=== PATIENT | female | born 1970 | race Caucasian/White ===

== ENCOUNTER 2020-05-04 08:00 | Emergency (ER) | payer MEDICAID ==
[~2020-05-04] VITALS: Ht 154.9 cm; Wt 71.8 kg
[2020-05-04 09:31] LABS: BASOPHILS % (AUTO) 0.4 % (0-1); EOSINOPHILS # (AUTO) 0.1 X10'3 (0-0.9); EOSINOPHILS % (AUTO) 1.3 % (0-6); HEMATOCRIT 43.4 % (35.0-45.0); HEMOGLOBIN 14.7 g/dl (12.0-16.0); LYMPHOCYTES # (AUTO) 1.5 X10'3 (1.1-4.8); LYMPHOCYTES % (AUTO) 29.3 % (21-51); MEAN CORPUSCULAR HEMOGLOBIN 31.7 PG (27.0-31.0); MEAN CORPUSCULAR HGB CONC 33.9 g/dL (33.0-36.5); MEAN CORPUSCULAR VOLUME 93.5 FL (78-98); MEAN PLATELET VOLUME 8.7 FL (7.4-10.4); MONOCYTES # (AUTO) 0.7 X10'3 (0-0.9); MONOCYTES % (AUTO) 13.1 % (2-12); NEUTROPHILS # (AUTO) 2.9 X10'3 (1.8-7.7); NEUTROPHILS % (AUTO) 55.9 % (42-75); PLATELET COUNT 338 X10'3 (140-440); RED BLOOD COUNT 4.64 X10'6 (4.20-5.60); RED CELL DISTRIBUTION WIDTH 13.6 % (11.5-14.5); WHITE BLOOD COUNT 5.2 X10'3 (4.5-11.0)
[2020-05-04 09:33] LABS: ALANINE AMINOTRANSFERASE 33 U/L (12-78); ALBUMIN/GLOBULIN RATIO 1.3 (1.1-1.5); ALKALINE PHOSPHATASE 74 IU/L (46-116); ANION GAP 7 (8-16); ASPARTATE AMINO TRANSFERASE 27 U/L (10-37); BILIRUBIN,TOTAL 0.5 MG/DL (0.1-1.0); BLOOD UREA NITROGEN 11 MG/DL (7-18); BUN/CREATININE RATIO 9.4 (6.6-38.0); CALCIUM 8.9 MG/DL (8.5-10.1); CHLORIDE 104 MMOL/L (99-107); CREATININE 1.17 MG/DL (0.40-0.90); GLUCOSE 112 MG/DL (70-104); SODIUM 139 MMOL/L (135-145); TOTAL CARBON DIOXIDE 28.3 MMOL/L (24-32); TOTAL PROTEIN 7.2 G/DL (6.4-8.2); eGFR 49 ML/MIN
[2020-05-04 09:46] LABS: POTASSIUM 3.6 MMOL/L (3.5-5.1)
[2020-05-04 10:31] LABS: D-DIMER 0.39 MG/L FEU (0-0.50)
[2020-05-04 12:06] LABS: CLARITY,URINE SLIGHTLY CLOUDY (Clear); COLOR,URINE STRAW (Yellow); GLUCOSE, URINE NEGATIVE (Neg); KETONES,URINE NEGATIVE (Neg); LEUKOCYTE ESTERASE ,URINE NEGATIVE (Neg); NITRITES, URINE NEGATIVE (Neg); OCCULT BLOOD,URINE NEGATIVE (Neg); PH,URINE >=9.0 (4.8-8.0); PROTEIN,URINE NEGATIVE (Neg); UROBILINOGEN,URINE 0.2 E.U/dL (0.2-1.0)
[2020-05-04 12:08] LABS: UA COLLECTION TYPE STRAIGHT CATH
[2020-05-04 12:12] LABS: MUCUS STRANDS MANY /LPF (Neg); SQUAMOUS EPITHELIAL CELL,UR MANY /LPF (FEW)
[2020-05-04 12:13] LABS: BACTERIA,URINE FEW /HPF (Neg); RBC,URINE 0-2 /HPF (0-2); WBC,URINE 0-4 /HPF (0-4)
[2020-05-04 12:14] LABS: AMORPHOUS PHOSPHATES 2+
[2020-05-04 13:05] VITALS: BP 113/72
== END 2020-05-04 13:07 | disposition home or self-care (01) ==
LOC: ER 08:00
DX: R06.02 Shortness of breath (principal); Z88.0 Allergy status to penicillin; Z88.5 Allergy status to narcotic agent
CPT/HCPCS: 36415; 71045; 80053; 81001; 83880; 84484; 85025; 85379; 93005; 99285

== ENCOUNTER 2020-06-26 13:45 | Observation (INO) | payer MEDICAID ==
[~2020-06-26] VITALS: Ht 154.9 cm; Wt 62.0 kg
[2020-06-26 14:30] LABS: BASOPHILS % (AUTO) 0.2 % (0-1); EOSINOPHILS % (AUTO) 0.3 % (0-6); HEMOGLOBIN 13.3 g/dl (12.0-16.0); LYMPHOCYTES # (AUTO) 2.1 X10'3 (1.1-4.8); LYMPHOCYTES % (AUTO) 20.7 % (21-51); MEAN CORPUSCULAR HEMOGLOBIN 31.7 PG (27.0-31.0); MEAN CORPUSCULAR HGB CONC 33.3 g/dL (33.0-36.5); MEAN CORPUSCULAR VOLUME 95.1 FL (78-98); MEAN PLATELET VOLUME 7.7 FL (7.4-10.4); MONOCYTES % (AUTO) 10.2 % (2-12); NEUTROPHILS # (AUTO) 6.9 X10'3 (1.8-7.7); NEUTROPHILS % (AUTO) 68.6 % (42-75); PLATELET COUNT 300 X10'3 (140-440); RED CELL DISTRIBUTION WIDTH 13.4 % (11.5-14.5)
[2020-06-26] MEDS ORDERED: normal saline 1000ML IV soln IVB ONE (14:40)
[2020-06-26] MEDS ORDERED: morphine 4 MG/ML inj SYRINge IV ONE ×2 (14:40→16:10)
[2020-06-26 14:51] LABS: ALANINE AMINOTRANSFERASE 99 U/L (12-78); ALBUMIN 3.7 G/DL (3.4-5.0); ALBUMIN/GLOBULIN RATIO 1.2 (1.1-1.5); ALKALINE PHOSPHATASE 88 IU/L (46-116); ANION GAP 7 (8-16); ASPARTATE AMINO TRANSFERASE 167 U/L (10-37); BILIRUBIN,TOTAL 0.4 MG/DL (0.1-1.0); BLOOD UREA NITROGEN 18 MG/DL (7-18); BUN/CREATININE RATIO 13.7 (6.6-38.0); CALCIUM 8.7 MG/DL (8.5-10.1); CHLORIDE 109 MMOL/L (99-107); CREATININE 1.31 MG/DL (0.40-0.90); GLUCOSE 86 MG/DL (70-104); POTASSIUM 3.9 MMOL/L (3.5-5.1); SODIUM 139 MMOL/L (135-145); TOTAL CARBON DIOXIDE 22.9 MMOL/L (24-32); TOTAL PROTEIN 6.7 G/DL (6.4-8.2); eGFR 43 ML/MIN
[2020-06-26 15:03] LABS: D-DIMER 0.47 MG/L FEU (0-0.50); PARTIAL THROMBOPLASTIN TIME 23 SECONDS (22-32)
[2020-06-26] MEDS ORDERED: iohexol 350MG/ML 100ml bottle IV ONE (15:05)
--- NOTE | 2020-06-26 15:14 | NUR ---
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
--- NOTE | 2020-06-26 15:15 | NUR ---
Rj ([facility]) [phone]
--- NOTE | 2020-06-26 15:28 | NUR ---
pt returns from ct
[2020-06-26] MEDS ORDERED: regadenoson 0.4mg/5ml syringe IV PRN (17:00)
[2020-06-26] MEDS ORDERED: nitroGLYCERIN 0.4mg SUBLingual tab SL PRN (17:00)
[2020-06-26] MEDS ORDERED: aminophylline 250mg/10ml inj. IV PRN (17:00)
[2020-06-26] MEDS ORDERED: metoprolol tartrate 1mg/ml inj IV PRN (17:00)
[2020-06-26] MEDS ORDERED: potassium Cl 20 mEq SR tablet PO PRN ×2 (17:05)
[2020-06-26] MEDS ORDERED: mag hydrox/Alum hydrox/simeth 30ml oral suspension PO PRN (17:05)
[2020-06-26] MEDS ORDERED: magnesium Cl slow-release 64mg tablet PO PRN (17:05)
[2020-06-26] MEDS ORDERED: magnesium 4gm in 100ml NS 100 ML IV PRN (17:05)
[2020-06-26] MEDS ORDERED: acetaminophen 325mg tablet PO PRN (17:05)
[2020-06-26] MEDS ORDERED: ondansetron/PF 4mg/2ml inj IV PRN (17:05)
[2020-06-26] MEDS ORDERED: potassium CL 10mEq/100ml bag 100 ML IV PRN ×2 (17:05)
[2020-06-26] MEDS ORDERED: morphine 2 MG/ML inj. syringe IV PRN (17:05)
[2020-06-26] MEDS ORDERED: ondansetron/PF 4mg/2ml inj IV ONE (17:05)
[2020-06-26] MEDS ORDERED: normal saline 1000ml 1,000 ML IV SCH (17:05)
[2020-06-26] MEDS ORDERED: magnesium 2GM in 50ml NS 50 ML IV PRN (17:05)
[2020-06-26] MEDS ORDERED: PIRO20CA2 PO (17:12)
[2020-06-26] MEDS ORDERED: PANT40TA54 PO (17:12)
[2020-06-26] MEDS ORDERED: BUDE10.2 INH (17:12)
[2020-06-26] MEDS ORDERED: ALBU8.5H8 IH (17:12)
[2020-06-26] MEDS ORDERED: GABA600T13 PO (17:12)
[2020-06-26] MEDS ORDERED: CYCL-1 PO (17:12)
[2020-06-26] MEDS ORDERED: LEVO100T9 PO (17:12)
[2020-06-26] MEDS ORDERED: DOXY-224 PO (17:12)
[2020-06-26] MEDS ORDERED: metoclopramide 5 mg/ml inj IV PRN (19:25)
--- NOTE | 2020-06-26 19:33 | NUR ---
pt nausea returned just over an hour after administration of Zofran. MD order for Reglan PRN Q6h.
[2020-06-26] MEDS ORDERED: ALBUTEROL INHALER 1 PUFF/90 MCG INHALER IH PRN (19:50)
[2020-06-26] MEDS ORDERED: albuterol 2.5 MG/3 ML nebule NEB PRN (19:55)
[2020-06-26] MEDS: K and/or MAG REPLACEMENT MC SCH (20:00)
[2020-06-26] MEDS: albuterol 2.5 MG/3 ML nebule NEB SCH (20:00)
[2020-06-26] MEDS: budesonide 0.5mg/2ml UD nebule IH SCH (20:00)
[2020-06-26] MEDS ORDERED: temazepam 15mg capsule PO PRN (21:00)
[2020-06-26] MEDS ORDERED: cyclobenzaprine 10mg tablet PO SCH (21:00)
--- NOTE | 2020-06-26 21:51 | NUR ---
Patient in room ED 6. I have received report from TRISTAN SALMERON and had the opportunity to ask questions and assume patient care.
[2020-06-26 22:32] VITALS: BP 106/65
[2020-06-27] VITALS (12 sets, daily range): BP systolic 90–117; BP diastolic 49–78
[2020-06-27] MEDS: gabapentin 300mg capsule PO SCH ×3 (01:10→14:34)
[2020-06-27] MEDS: albuterol 2.5 MG/3 ML nebule NEB SCH ×2 (02:24→08:17)
[2020-06-27 02:33] LABS: BASOPHILS % (AUTO) 0.7 % (0-1); EOSINOPHILS # (AUTO) 0.1 X10'3 (0-0.9); EOSINOPHILS % (AUTO) 1.3 % (0-6); HEMOGLOBIN 12.3 g/dl (12.0-16.0); LYMPHOCYTES # (AUTO) 1.5 X10'3 (1.1-4.8); LYMPHOCYTES % (AUTO) 27.6 % (21-51); MEAN CORPUSCULAR HEMOGLOBIN 32.9 PG (27.0-31.0); MEAN CORPUSCULAR HGB CONC 34.2 g/dL (33.0-36.5); MEAN CORPUSCULAR VOLUME 96.1 FL (78-98); MEAN PLATELET VOLUME 7.7 FL (7.4-10.4); MONOCYTES # (AUTO) 0.6 X10'3 (0-0.9); MONOCYTES % (AUTO) 10.7 % (2-12); NEUTROPHILS # (AUTO) 3.2 X10'3 (1.8-7.7); NEUTROPHILS % (AUTO) 59.7 % (42-75); PLATELET COUNT 248 X10'3 (140-440); RED BLOOD COUNT 3.75 X10'6 (4.20-5.60); RED CELL DISTRIBUTION WIDTH 13.2 % (11.5-14.5); WHITE BLOOD COUNT 5.3 X10'3 (4.5-11.0)
[2020-06-27] MEDS ORDERED: nitroGLYCERIN 0.1mg/hour patch TD ONE (02:45)
[2020-06-27 02:47] LABS: ALBUMIN 2.9 G/DL (3.4-5.0); ANION GAP 7 (8-16); BLOOD UREA NITROGEN 17 MG/DL (7-18); BUN/CREATININE RATIO 16.3 (6.6-38.0); CALCIUM 7.7 MG/DL (8.5-10.1); CHLORIDE 111 MMOL/L (99-107); CHOL/HDL RATIO 2.5 (0.00-4.99); CHOLESTEROL 146 MG/DL (0-200); CREATININE 1.04 MG/DL (0.40-0.90); GLUCOSE 100 MG/DL (70-104); HDL CHOLESTEROL 58 MG/DL (35-60); LDL CHOLESTEROL 63 MG/DL (50-100); MAGNESIUM 2.4 MG/DL (1.5-2.4); POTASSIUM 3.6 MMOL/L (3.5-5.1); SODIUM 141 MMOL/L (135-145); TOTAL CARBON DIOXIDE 23.3 MMOL/L (24-32); TRIGLYCERIDES 105 MG/DL (20-135); eGFR 57 ML/MIN
--- NOTE | 2020-06-27 06:10 | NUR ---
Patient in room MED 310. I have received report from FAVIOLA Gomez and had the opportunity to ask questions and assume patient care.
[2020-06-27] MEDS: K and/or MAG REPLACEMENT MC SCH (07:29)
[2020-06-27] MEDS ORDERED: pantoprazole 40mg Tablet.DR PO SCH (07:30)
[2020-06-27] MEDS ORDERED: nitroGLYCERIN 0.1mg/hour patch TD SCH (08:00)
[2020-06-27] MEDS ORDERED: levoTHYROXINE 100mcg tablet PO SCH (08:00)
[2020-06-27] MEDS: budesonide 0.5mg/2ml UD nebule IH SCH (08:17)
[2020-06-27] MEDS ORDERED: PANT40SU2 PO (10:30)
--- NOTE | 2020-06-27 12:06 | NUR ---
dr. thornton paged: PAGER ID: [phone] MESSAGE: [phone]: SHANNON SINGER (-), WAITING ON ECHO, if you still want. going to feed her :D nurse Martha [phone]
--- NOTE | 2020-06-27 14:38 | NUR ---
Discharged. PIV out. Stable per Dr Otto for [place]. Educated on meds, follow-up and chest pain. Escript to Velia in [place]. Wheeled out to lobby.
== END 2020-06-27 14:40 | disposition home or self-care (01) ==
LOC: ER 13:45 → ED HOLD 17:05 → MED 3N 22:00
PROVIDERS: ADMIT Internal Medicine; ATTEND Internal Medicine
DX: R07.89 Other chest pain (principal); R79.89 Other specified abnormal findings of blood chemistry; I10 Essential (primary) hypertension; I48.91 Unspecified atrial fibrillation; E03.9 Hypothyroidism, unspecified; G89.29 Other chronic pain; I24.9 Acute ischemic heart disease, unspecified; Z82.49 Family history of ischemic heart disease and other diseases of the circulatory system; Z79.899 Other long term (current) drug therapy; Z88.0 Allergy status to penicillin; Z88.5 Allergy status to narcotic agent
CPT/HCPCS: 36415; 71045; 71275; 74174; 76700; 78452; 80048; 80053; 80061; 83605; 83735; 83880; 84484; 85025; 85379; 85610; 85730; 87081; 93005; 93017; 93306; 94640; 94760; 96361; 96374; 96375; 96376; 99285; A9500; G0378; J2270; J2405; J2765; J2785; J7030; Q9967; J7626

== ENCOUNTER 2020-12-03 09:23 | Emergency (ER) | payer MEDICAID ==
[~2020-12-03] VITALS: Ht 154.9 cm; Wt 63.6 kg
[~2020-12-03 09:23] MED LIST: ALBU8.5H8 IH; BUDE10.2 INH; CYCL-1 PO; DOXY-224 PO; GABA600T13 PO; LEVO100T9 PO; PANT40SU2 PO; PANT40TA54 PO
[2020-12-03 10:32] LABS: BASOPHILS % (AUTO) 0.8 % (0-1); EOSINOPHILS # (AUTO) 0.1 X10'3 (0-0.9); EOSINOPHILS % (AUTO) 1.2 % (0-6); HEMATOCRIT 44.5 % (35.0-45.0); HEMOGLOBIN 14.9 g/dl (12.0-16.0); LYMPHOCYTES # (AUTO) 1.6 X10'3 (1.1-4.8); LYMPHOCYTES % (AUTO) 27.3 % (21-51); MEAN CORPUSCULAR HEMOGLOBIN 31.7 PG (27.0-31.0); MEAN CORPUSCULAR HGB CONC 33.4 g/dL (33.0-36.5); MEAN CORPUSCULAR VOLUME 94.8 FL (78-98); MONOCYTES # (AUTO) 0.7 X10'3 (0-0.9); MONOCYTES % (AUTO) 11.1 % (2-12); NEUTROPHILS # (AUTO) 3.5 X10'3 (1.8-7.7); NEUTROPHILS % (AUTO) 59.6 % (42-75); PLATELET COUNT 336 X10'3 (140-440); RED CELL DISTRIBUTION WIDTH 12.8 % (11.5-14.5); WHITE BLOOD COUNT 5.9 X10'3 (4.5-11.0)
[2020-12-03 10:36] LABS: URINE HCG NEGATIVE (NEG)
[2020-12-03 10:41] LABS: CLARITY,URINE CLEAR (Clear); COLOR,URINE YELLOW (Yellow); GLUCOSE, URINE NEGATIVE (Neg); KETONES,URINE NEGATIVE (Neg); LEUKOCYTE ESTERASE ,URINE NEGATIVE (Neg); NITRITES, URINE NEGATIVE (Neg); OCCULT BLOOD,URINE NEGATIVE (Neg); PROTEIN,URINE NEGATIVE (Neg); UROBILINOGEN,URINE 0.2 E.U/dL (0.2-1.0)
[2020-12-03 10:42] LABS: ALANINE AMINOTRANSFERASE 27 U/L (12-78); ALBUMIN 4.3 G/DL (3.4-5.0); ALBUMIN/GLOBULIN RATIO 1.2 (1.1-1.5); ALKALINE PHOSPHATASE 82 IU/L (46-116); ANION GAP 10 (8-16); ASPARTATE AMINO TRANSFERASE 25 U/L (10-37); BILIRUBIN,TOTAL 0.5 MG/DL (0.1-1.0); BLOOD UREA NITROGEN 16 MG/DL (7-18); BUN/CREATININE RATIO 15.4 (6.6-38.0); CALCIUM 8.8 MG/DL (8.5-10.1); CHLORIDE 103 MMOL/L (99-107); CREATININE 1.04 MG/DL (0.40-0.90); GLUCOSE 92 MG/DL (70-104); LIPASE 64 U/L (73-393); POTASSIUM 4.3 MMOL/L (3.5-5.1); SODIUM 138 MMOL/L (135-145); TOTAL CARBON DIOXIDE 25.1 MMOL/L (24-32); TOTAL PROTEIN 7.8 G/DL (6.4-8.2); eGFR 56 ML/MIN
[2020-12-03 10:43] LABS: UA COLLECTION TYPE CLN CATCH MIDSTREAM
[2020-12-03] MEDS ORDERED: ondansetron/PF 4mg/2ml inj IV ONE (11:55)
[2020-12-03] MEDS ORDERED: morphine 4 MG/ML inj SYRINge IV ONE (11:55)
[2020-12-03] MEDS ORDERED: iohexol 300mg/ml 100ml inj. ONE (12:11)
[2020-12-03] MEDS ORDERED: HYDROcodone/acetaminophen 10/325mg tab PO ONE (14:20)
[2020-12-03] MEDS ORDERED: ondansetron 4mg rapidly disintigrating tab PO ONE (14:20)
[2020-12-03 17:07] VITALS: BP 114/88
== END 2020-12-03 17:08 | disposition home or self-care (01) ==
LOC: ER 09:23
DX: R10.32 Left lower quadrant pain (principal); R30.9 Painful micturition, unspecified; I48.91 Unspecified atrial fibrillation; I25.2 Old myocardial infarction; Z90.49 Acquired absence of other specified parts of digestive tract; Z88.0 Allergy status to penicillin; Z88.5 Allergy status to narcotic agent; Z79.2 Long term (current) use of antibiotics; Z79.899 Other long term (current) drug therapy
CPT/HCPCS: 36415; 74177; 76856; 80053; 81003; 81025; 83605; 83690; 85025; 93976; 96374; 96375; 99285; J2270; J2405; Q9967

== ENCOUNTER 2021-05-07 13:36 | Inpatient (IN) | payer MEDICAID ==
[~2021-05-07] VITALS: Ht 154.9 cm; Wt 79.0 kg
[~2021-05-07 13:36] MED LIST changes: +ALBU8.5H17 IH; -ALBU8.5H8 IH
[2021-05-07] MEDS ORDERED: albuterol 2.5 MG/3 ML nebule CONTNEB PRN ×2 (13:55→16:05)
[2021-05-07] MEDS ORDERED: normal saline 1000ML IV soln IVB ONE ×2 (13:55→16:05)
[2021-05-07] MEDS ORDERED: methylPREDNISolone sod succ 125mg/2ml vial IV ONE (13:55)
[2021-05-07 14:13] LABS: BASOPHILS # (AUTO) 0.1 X10'3 (0-0.2); BASOPHILS % (AUTO) 0.5 % (0-1); EOSINOPHILS % (AUTO) 0 % (0-6); HEMATOCRIT 41.9 % (35.0-45.0); HEMOGLOBIN 14.3 g/dl (12.0-16.0); LYMPHOCYTES # (AUTO) 1.8 X10'3 (1.1-4.8); LYMPHOCYTES % (AUTO) 16.1 % (21-51); MEAN CORPUSCULAR HEMOGLOBIN 32.1 PG (27.0-31.0); MEAN CORPUSCULAR VOLUME 94.5 FL (78-98); MEAN PLATELET VOLUME 7.8 FL (7.4-10.4); MONOCYTES # (AUTO) 0.9 X10'3 (0-0.9); MONOCYTES % (AUTO) 8.1 % (2-12); NEUTROPHILS # (AUTO) 8.3 X10'3 (1.8-7.7); NEUTROPHILS % (AUTO) 75.3 % (42-75); PLATELET COUNT 385 X10'3 (140-440); RED BLOOD COUNT 4.44 X10'6 (4.20-5.60); RED CELL DISTRIBUTION WIDTH 13.2 % (11.5-14.5)
[2021-05-07 14:28] LABS: ALANINE AMINOTRANSFERASE 31 U/L (12-78); ALBUMIN 4.2 G/DL (3.4-5.0); ALBUMIN/GLOBULIN RATIO 1.2 (1.1-1.5); ALKALINE PHOSPHATASE 88 IU/L (46-116); ANION GAP 17 (8-16); ASPARTATE AMINO TRANSFERASE 16 U/L (10-37); BILIRUBIN,TOTAL 0.3 MG/DL (0.1-1.0); BLOOD UREA NITROGEN 17 MG/DL (7-18); BUN/CREATININE RATIO 12.8 (6.6-38.0); CALCIUM 8.8 MG/DL (8.5-10.1); CHLORIDE 105 MMOL/L (99-107); CREATININE 1.33 MG/DL (0.40-0.90); GLUCOSE 165 MG/DL (70-104); POTASSIUM 3.9 MMOL/L (3.5-5.1); SODIUM 141 MMOL/L (135-145); TOTAL CARBON DIOXIDE 19.2 MMOL/L (24-32); TOTAL PROTEIN 7.8 G/DL (6.4-8.2); eGFR 42 ML/MIN
--- NOTE | 2021-05-07 14:40 | NUR ---
BREAK RN: PATIENT ON BED AWAKE RECEIVING BREATHING TX.
[2021-05-07] MEDS ORDERED: racepinephrine 11.25mg/0.5ml nebule IH ONE (16:05)
[2021-05-07] MEDS ORDERED: ipratropium 0.5 MG/2.5ML nebule IH ONE (16:05)
[2021-05-07] MEDS ORDERED: dexamethasone sod phosphate 10mg/ml inj IV STA (16:29)
[2021-05-07] MEDS ORDERED: VERA120T19 PO (16:36)
[2021-05-07] MEDS ORDERED: MONT10TA32 PO (16:36)
[2021-05-07] MEDS ORDERED: BUPR100T7 PO (16:37)
[2021-05-07] MEDS ORDERED: ATRIN IH (16:38)
[2021-05-07] MEDS ORDERED: GABA300C PO (16:40)
[2021-05-07] MEDS ORDERED: LEVO125T PO (16:42)
[2021-05-07] MEDS ORDERED: ALBU2.5V10 NEB (16:43)
[2021-05-07 17:08] LABS: D-DIMER 0.33 MG/L FEU (0-0.50)
[2021-05-07] MEDS ORDERED: iohexol 350MG/ML 100ml bottle IV ONE (17:17)
[2021-05-07] MEDS ORDERED: mag hydrox/Alum hydrox/simeth 30ml oral suspension PO PRN (19:25)
[2021-05-07] MEDS ORDERED: potassium Cl 20 mEq SR tablet PO PRN (19:25)
[2021-05-07] MEDS ORDERED: ondansetron/PF 4mg/2ml inj IV PRN (19:25)
[2021-05-07] MEDS ORDERED: magnesium Cl slow-release 64mg tablet PO PRN (19:25)
[2021-05-07] MEDS ORDERED: acetaminophen 325mg tablet PO PRN (19:25)
[2021-05-07] MEDS ORDERED: magnesium 2GM in 50ml NS 50 ML IV PRN (19:25)
[2021-05-07] MEDS ORDERED: gabapentin 300mg capsule PO PRN (19:25)
[2021-05-07] MEDS ORDERED: magnesium 4gm in 100ml NS 100 ML IV PRN (19:25)
[2021-05-07] MEDS ORDERED: bisacodyl 10mg suppository rectal RC PRN (19:25)
[2021-05-07] MEDS ORDERED: diphenhydrAMINE 25mg capsule PO PRN (19:25)
[2021-05-07] MEDS ORDERED: REMDESIVIR INJ 200 MG in normal saline 100ml IV soln 60 ML IV ONE (19:25)
[2021-05-07] MEDS ORDERED: potassium Cl 40MEQ/1/2NS 520ml 520 ML IV PRN ×2 (19:25)
[2021-05-07] MEDS ORDERED: ALBUTEROL INHALER 1 PUFF/90 MCG INHALER IH PRN (19:25)
[2021-05-07] MEDS ORDERED: acetaminophen 650mg rectal suppository RC PRN (19:25)
[2021-05-07] MEDS: normal saline 1000ml 1,000 ML IV SCH (20:00)
[2021-05-07] MEDS: buPROPion SR 100mg tab PO SCH (20:00)
[2021-05-07] MEDS: K and/or MAG REPLACEMENT MC SCH (20:00)
[2021-05-07] MEDS: acetaminophen 325mg tablet PO PRN (20:28)
[2021-05-07] MEDS: enoxaparin 80mg/0.8ml syringe SUBCUT SCH (20:29)
[2021-05-07] MEDS: methylPREDNISolone sod succ 125mg/2ml vial IV SCH (20:29)
[2021-05-07] MEDS: docusate sod 100mg capsule PO SCH (20:29)
[2021-05-07] MEDS ORDERED: cyclobenzaprine 10mg tablet PO SCH (21:00)
[2021-05-07] MEDS: magnesium hydroxide 30ml (MOM) UD suspension PO PRN (21:43)
[2021-05-07 22:03] LABS: TROPONIN I < 0.04 NG/ML (0.0-0.05)
--- NOTE | 2021-05-07 22:29 | NUR ---
Patient in room ED 6. I have received report from FAVIOLA Shahid and had the opportunity to ask questions and assume patient care.
[2021-05-07 22:31] LABS: URINE AMPHETAMINE SCREEN NEGATIVE (Neg); URINE BARBITUATE SCREEN NEGATIVE (Neg); URINE BENZODIAZEPINES SCREEN NEGATIVE (Neg); URINE CANNABINOID SCREEN NEGATIVE (Neg); URINE COCAINE SCREEN NEGATIVE (Neg); URINE METHADONE SCREEN NEGATIVE (Neg); URINE OPIATE SCREEN NEGATIVE (Neg); URINE PHENCYCLIDINE SCREEN NEGATIVE (Neg)
[2021-05-07 23:20] VITALS: BP 122/70
[2021-05-07 23:52] LABS: CLARITY,URINE CLEAR (Clear); COLOR,URINE YELLOW (Yellow); UA COLLECTION TYPE CLN CATCH MIDSTREAM
[2021-05-07 23:53] LABS: GLUCOSE, URINE NEGATIVE (Neg); KETONES,URINE NEGATIVE (Neg); LEUKOCYTE ESTERASE ,URINE NEGATIVE (Neg); NITRITES, URINE NEGATIVE (Neg); OCCULT BLOOD,URINE NEGATIVE (Neg); PROTEIN,URINE NEGATIVE (Neg); UROBILINOGEN,URINE 0.2 E.U/dL (0.2-1.0)
[2021-05-08 02:00] VITALS: BP 101/63
[2021-05-08] MEDS: methylPREDNISolone sod succ 125mg/2ml vial IV SCH ×4 (02:04→19:05)
[2021-05-08] MEDS: acetaminophen 325mg tablet PO PRN ×3 (03:54→19:07)
[2021-05-08 06:00] VITALS: BP 111/54
--- NOTE | 2021-05-08 06:56 | NUR ---
Problems reprioritized. Patient report given, questions answered & plan of care reviewed with FAVIOLA Hinojosa.
--- NOTE | 2021-05-08 07:02 | NUR ---
Patient in room ORTHO 4013. I have received report from FAVIOLA Wood and had the opportunity to ask questions and assume patient care.
[2021-05-08] MEDS: K and/or MAG REPLACEMENT MC SCH ×2 (08:00→20:00)
[2021-05-08] MEDS: docusate sod 100mg capsule PO SCH ×2 (08:19→19:07)
[2021-05-08] MEDS: REMDESIVIR INJ 100 MG in normal saline 100ml IV soln 80 ML IV SCH (08:19)
[2021-05-08] MEDS: montelukast 10mg tablet PO SCH (08:19)
[2021-05-08] MEDS: levoTHYROXINE 125mcg tablet PO SCH (08:19)
[2021-05-08] MEDS: enoxaparin 80mg/0.8ml syringe SUBCUT SCH ×2 (08:19→19:06)
[2021-05-08] MEDS: pantoprazole 40mg Tablet.DR PO SCH (08:20)
[2021-05-08 09:44] LABS: BASOPHILS % (AUTO) 0.1 % (0-1); EOSINOPHILS % (AUTO) 0 % (0-6); HEMOGLOBIN 12.4 g/dl (12.0-16.0); LYMPHOCYTES # (AUTO) 0.6 X10'3 (1.1-4.8); LYMPHOCYTES % (AUTO) 7.4 % (21-51); MEAN CORPUSCULAR HGB CONC 33.5 g/dL (33.0-36.5); MEAN CORPUSCULAR VOLUME 95.4 FL (78-98); MEAN PLATELET VOLUME 7.8 FL (7.4-10.4); MONOCYTES # (AUTO) 0.3 X10'3 (0-0.9); MONOCYTES % (AUTO) 3.4 % (2-12); NEUTROPHILS # (AUTO) 7.2 X10'3 (1.8-7.7); NEUTROPHILS % (AUTO) 89.1 % (42-75); PLATELET COUNT 295 X10'3 (140-440); RED BLOOD COUNT 3.87 X10'6 (4.20-5.60); RED CELL DISTRIBUTION WIDTH 13.4 % (11.5-14.5); WHITE BLOOD COUNT 8.1 X10'3 (4.5-11.0)
[2021-05-08 10:00] VITALS: BP 120/61
[2021-05-08 10:03] LABS: ALANINE AMINOTRANSFERASE 22 U/L (12-78); ALBUMIN 3.2 G/DL (3.4-5.0); ALBUMIN/GLOBULIN RATIO 1.1 (1.1-1.5); ALKALINE PHOSPHATASE 60 IU/L (46-116); ANION GAP 25 (8-16); ASPARTATE AMINO TRANSFERASE 11 U/L (10-37); BILIRUBIN,TOTAL 0.2 MG/DL (0.1-1.0); BLOOD UREA NITROGEN 13 MG/DL (7-18); BUN/CREATININE RATIO 15.5 (6.6-38.0); CALCIUM 7.3 MG/DL (8.5-10.1); CHLORIDE 109 MMOL/L (99-107); CHOL/HDL RATIO 3.1 (0.00-4.99); CHOLESTEROL 200 MG/DL (0-200); CREATININE 0.84 MG/DL (0.40-0.90); GLUCOSE 122 MG/DL (70-104); HDL CHOLESTEROL 64 MG/DL (35-60); LDL CHOLESTEROL 115 MG/DL (50-100); MAGNESIUM 2.5 MG/DL (1.5-2.4); PHOSPHORUS 2.3 MG/DL (2.3-4.5); POTASSIUM 3.3 MMOL/L (3.5-5.1); SODIUM 150 MMOL/L (135-145); TOTAL CARBON DIOXIDE 15.7 MMOL/L (24-32); TRIGLYCERIDES 56 MG/DL (20-135); TROPONIN I < 0.04 NG/ML (0.0-0.05); eGFR 72 ML/MIN
[2021-05-08] MEDS: buPROPion SR 100mg tab PO SCH ×2 (12:09→19:06)
[2021-05-08] MEDS: verapamil tablet 120 MG TABLET PO SCH (12:09)
[2021-05-08] MEDS ORDERED: gabapentin 300mg capsule PO PRN (12:20)
[2021-05-08] MEDS: guaiFENesin ER 600mg tablet PO SCH ×2 (12:38→19:06)
[2021-05-08] MEDS: cyclobenzaprine 10mg tablet PO PRN ×2 (12:38→20:50)
[2021-05-08] MEDS: potassium Cl 20 mEq SR tablet PO PRN ×3 (13:43→22:09)
[2021-05-08 14:00] VITALS: BP 99/61
[2021-05-08 18:00] VITALS: BP 99/51
[2021-05-08] MEDS: normal saline 1000ml 1,000 ML IV SCH (18:07)
--- NOTE | 2021-05-08 18:11 | NUR ---
Problems reprioritized. Patient report given, questions answered & plan of care reviewed with FAVIOLA Wood.
--- NOTE | 2021-05-08 18:35 | NUR ---
Patient in room ORTHO 4013. I have received report from FAVIOLA Hinojosa and had the opportunity to ask questions and assume patient care.
[2021-05-08 22:00] VITALS: BP 101/65
[2021-05-09] MEDS: methylPREDNISolone sod succ 125mg/2ml vial IV SCH ×4 (01:47→20:52)
[2021-05-09 02:00] VITALS: BP 100/34
[2021-05-09] MEDS: magnesium hydroxide 30ml (MOM) UD suspension PO PRN ×2 (03:49→21:12)
[2021-05-09 06:00] VITALS: BP 84/39
--- NOTE | 2021-05-09 06:32 | NUR ---
Problems reprioritized. Patient report given, questions answered & plan of care reviewed with FAVIOLA Muniz.
--- NOTE | 2021-05-09 06:37 | NUR ---
Patient in room ORTHO 4013B. I have received report from FAVIOLA Santiago and had the opportunity to ask questions and assume patient care. Addendum: 05/09/21 at 0639 by Cristy Kwong RN Report from FAVIOLA Wood, not Pamela
[2021-05-09] MEDS: K and/or MAG REPLACEMENT MC SCH ×2 (08:00→20:25)
[2021-05-09] MEDS: verapamil tablet 120 MG TABLET PO SCH (08:00)
[2021-05-09] MEDS: levoTHYROXINE 125mcg tablet PO SCH (08:00)
[2021-05-09 08:11] LABS: BASOPHILS % (AUTO) 0.1 % (0-1); EOSINOPHILS % (AUTO) 0 % (0-6); HEMOGLOBIN 11.6 g/dl (12.0-16.0); LYMPHOCYTES # (AUTO) 0.7 X10'3 (1.1-4.8); LYMPHOCYTES % (AUTO) 5.5 % (21-51); MEAN CORPUSCULAR HEMOGLOBIN 31.4 PG (27.0-31.0); MEAN CORPUSCULAR HGB CONC 33.1 g/dL (33.0-36.5); MEAN CORPUSCULAR VOLUME 94.9 FL (78-98); MEAN PLATELET VOLUME 8.1 FL (7.4-10.4); MONOCYTES # (AUTO) 0.5 X10'3 (0-0.9); MONOCYTES % (AUTO) 4.6 % (2-12); NEUTROPHILS # (AUTO) 10.7 X10'3 (1.8-7.7); NEUTROPHILS % (AUTO) 89.8 % (42-75); PLATELET COUNT 300 X10'3 (140-440); RED BLOOD COUNT 3.69 X10'6 (4.20-5.60); RED CELL DISTRIBUTION WIDTH 13.2 % (11.5-14.5); WHITE BLOOD COUNT 11.9 X10'3 (4.5-11.0)
[2021-05-09 08:36] LABS: ALANINE AMINOTRANSFERASE 25 U/L (12-78); ALBUMIN 3.1 G/DL (3.4-5.0); ALBUMIN/GLOBULIN RATIO 1.1 (1.1-1.5); ALKALINE PHOSPHATASE 56 IU/L (46-116); ANION GAP 10 (8-16); ASPARTATE AMINO TRANSFERASE 13 U/L (10-37); BILIRUBIN,TOTAL 0.3 MG/DL (0.1-1.0); BLOOD UREA NITROGEN 17 MG/DL (7-18); BUN/CREATININE RATIO 18.9 (6.6-38.0); CALCIUM 8.2 MG/DL (8.5-10.1); CHLORIDE 113 MMOL/L (99-107); GLUCOSE 132 MG/DL (70-104); MAGNESIUM 2.9 MG/DL (1.5-2.4); PHOSPHORUS 2.6 MG/DL (2.3-4.5); POTASSIUM 4.4 MMOL/L (3.5-5.1); SODIUM 145 MMOL/L (135-145); TOTAL CARBON DIOXIDE 22.3 MMOL/L (24-32); TOTAL PROTEIN 5.9 G/DL (6.4-8.2); eGFR 67 ML/MIN
[2021-05-09] MEDS: docusate sod 100mg capsule PO SCH ×2 (09:28→20:44)
[2021-05-09] MEDS: montelukast 10mg tablet PO SCH (09:29)
[2021-05-09] MEDS: guaiFENesin ER 600mg tablet PO SCH ×2 (09:30→20:45)
[2021-05-09] MEDS: pantoprazole 40mg Tablet.DR PO SCH (09:30)
[2021-05-09] MEDS: buPROPion SR 100mg tab PO SCH ×2 (09:30→20:51)
[2021-05-09] MEDS: REMDESIVIR INJ 100 MG in normal saline 100ml IV soln 80 ML IV SCH (09:33)
[2021-05-09] MEDS: enoxaparin 80mg/0.8ml syringe SUBCUT SCH ×2 (09:35→20:51)
[2021-05-09] MEDS: acetaminophen 325mg tablet PO PRN (09:45)
[2021-05-09] MEDS ORDERED: benzonatate 100mg capsule PO PRN (13:30)
[2021-05-09] MEDS: normal saline 1000ml 1,000 ML IV SCH (15:20)
[2021-05-09 18:00] VITALS: BP 112/53
--- NOTE | 2021-05-09 18:53 | NUR ---
Problems reprioritized. Patient report given, questions answered & plan of care reviewed with FAVIOLA Basilio.
[2021-05-09] MEDS ORDERED: guaiFENesin ER 600mg tablet PO SCH (20:00)
[2021-05-09] MEDS: cyclobenzaprine 10mg tablet PO PRN (21:12)
[2021-05-09 22:00] VITALS: BP 97/48
[2021-05-10 02:00] VITALS: BP 107/56
[2021-05-10] MEDS: methylPREDNISolone sod succ 125mg/2ml vial IV SCH ×4 (02:29→20:59)
[2021-05-10] MEDS: levoTHYROXINE 125mcg tablet PO SCH (05:37)
[2021-05-10 06:00] VITALS: BP 106/57
--- NOTE | 2021-05-10 06:15 | NUR ---
RECEIVED REPORT FROM FAVIOLA MENA
[2021-05-10] MEDS: K and/or MAG REPLACEMENT MC SCH ×2 (08:00→20:00)
[2021-05-10] MEDS: docusate sod 100mg capsule PO SCH ×2 (08:20→20:58)
[2021-05-10] MEDS: REMDESIVIR INJ 100 MG in normal saline 100ml IV soln 80 ML IV SCH (08:20)
[2021-05-10] MEDS: verapamil tablet 120 MG TABLET PO SCH (08:20)
[2021-05-10] MEDS: pantoprazole 40mg Tablet.DR PO SCH (08:21)
[2021-05-10] MEDS: montelukast 10mg tablet PO SCH (08:21)
[2021-05-10] MEDS: guaiFENesin ER 600mg tablet PO SCH ×2 (08:21→20:58)
[2021-05-10] MEDS: enoxaparin 80mg/0.8ml syringe SUBCUT SCH ×2 (08:22→20:59)
[2021-05-10] MEDS: buPROPion SR 100mg tab PO SCH ×2 (08:22→20:58)
[2021-05-10 08:29] LABS: BASOPHILS % (AUTO) 0.2 % (0-1); EOSINOPHILS % (AUTO) 0 % (0-6); HEMATOCRIT 37.5 % (35.0-45.0); HEMOGLOBIN 12.3 g/dl (12.0-16.0); LYMPHOCYTES # (AUTO) 0.5 X10'3 (1.1-4.8); LYMPHOCYTES % (AUTO) 5.9 % (21-51); MEAN CORPUSCULAR HEMOGLOBIN 31.5 PG (27.0-31.0); MEAN CORPUSCULAR HGB CONC 32.8 g/dL (33.0-36.5); MEAN PLATELET VOLUME 8.8 FL (7.4-10.4); MONOCYTES # (AUTO) 0.5 X10'3 (0-0.9); MONOCYTES % (AUTO) 5.6 % (2-12); NEUTROPHILS # (AUTO) 7.8 X10'3 (1.8-7.7); NEUTROPHILS % (AUTO) 88.3 % (42-75); PLATELET COUNT 293 X10'3 (140-440); WHITE BLOOD COUNT 8.9 X10'3 (4.5-11.0)
[2021-05-10 08:34] LABS: ALANINE AMINOTRANSFERASE 30 U/L (12-78); ALKALINE PHOSPHATASE 57 IU/L (46-116); ANION GAP 8 (8-16); ASPARTATE AMINO TRANSFERASE 14 U/L (10-37); BILIRUBIN,TOTAL 0.2 MG/DL (0.1-1.0); BLOOD UREA NITROGEN 21 MG/DL (7-18); BUN/CREATININE RATIO 23.9 (6.6-38.0); CALCIUM 8.1 MG/DL (8.5-10.1); CHLORIDE 108 MMOL/L (99-107); CREATININE 0.88 MG/DL (0.40-0.90); GLUCOSE 115 MG/DL (70-104); MAGNESIUM 2.4 MG/DL (1.5-2.4); POTASSIUM 4.3 MMOL/L (3.5-5.1); SODIUM 141 MMOL/L (135-145); TOTAL CARBON DIOXIDE 24.8 MMOL/L (24-32); TOTAL PROTEIN 5.9 G/DL (6.4-8.2); eGFR 68 ML/MIN
[2021-05-10 10:00] VITALS: BP 113/58
[2021-05-10] MEDS: acetaminophen 325mg tablet PO PRN (11:52)
[2021-05-10] MEDS: normal saline 1000ml 1,000 ML IV SCH (11:54)
--- NOTE | 2021-05-10 13:30 | NUR ---
Initial: Pt admit DX acute respiratory failure r/t COVID-19 PNA, COPD exacerbation, GERD, and SLE per MD note. PO mostly 75-100% avg heart healthy diet past two days since admit meeting needs. LBM 05/09 receiving routine colace. No nutrition intervention at this time. Will continue to monitor. Rec: 1. continue heart healthy diet 2. routine bowel care 3. scaled wt this admit; subsequent weekly wts Addendum: 05/10/21 at [address] Amended: Links added.
[2021-05-10 14:00] VITALS: BP 111/55
[2021-05-10 18:00] VITALS: BP 124/70
--- NOTE | 2021-05-10 18:30 | NUR ---
Report given to Praful SALMERON.
[2021-05-10] MEDS: cyclobenzaprine 10mg tablet PO PRN (20:58)
[2021-05-11] MEDS: methylPREDNISolone sod succ 125mg/2ml vial IV SCH ×3 (01:51→14:00)
[2021-05-11] MEDS: levoTHYROXINE 125mcg tablet PO SCH (05:30)
[2021-05-11 06:00] VITALS: BP 126/55
--- NOTE | 2021-05-11 06:10 | NUR ---
received report from blossom padilla
[2021-05-11] MEDS: montelukast 10mg tablet PO SCH (07:50)
[2021-05-11] MEDS: docusate sod 100mg capsule PO SCH (07:50)
[2021-05-11] MEDS: guaiFENesin ER 600mg tablet PO SCH (07:50)
[2021-05-11] MEDS: pantoprazole 40mg Tablet.DR PO SCH (07:51)
[2021-05-11] MEDS: buPROPion SR 100mg tab PO SCH (07:51)
[2021-05-11] MEDS: REMDESIVIR INJ 100 MG in normal saline 100ml IV soln 80 ML IV SCH (07:54)
[2021-05-11] MEDS: enoxaparin 80mg/0.8ml syringe SUBCUT SCH (07:56)
[2021-05-11] MEDS: K and/or MAG REPLACEMENT MC SCH (07:58)
[2021-05-11] MEDS: verapamil tablet 120 MG TABLET PO SCH (07:58)
--- NOTE | 2021-05-11 07:59 | NUR ---
scanner on computer not scanning meds into [employer], checked all meds prior to admin
[2021-05-11 09:03] LABS: BASOPHILS % (AUTO) 0.2 % (0-1); EOSINOPHILS % (AUTO) 0 % (0-6); HEMATOCRIT 38.2 % (35.0-45.0); HEMOGLOBIN 12.8 g/dl (12.0-16.0); LYMPHOCYTES # (AUTO) 0.8 X10'3 (1.1-4.8); LYMPHOCYTES % (AUTO) 9.6 % (21-51); MEAN CORPUSCULAR HEMOGLOBIN 31.7 PG (27.0-31.0); MEAN CORPUSCULAR HGB CONC 33.5 g/dL (33.0-36.5); MEAN CORPUSCULAR VOLUME 94.4 FL (78-98); MEAN PLATELET VOLUME 8.6 FL (7.4-10.4); MONOCYTES # (AUTO) 0.4 X10'3 (0-0.9); MONOCYTES % (AUTO) 5.1 % (2-12); NEUTROPHILS # (AUTO) 6.7 X10'3 (1.8-7.7); NEUTROPHILS % (AUTO) 85.1 % (42-75); PLATELET COUNT 306 X10'3 (140-440); RED BLOOD COUNT 4.04 X10'6 (4.20-5.60); RED CELL DISTRIBUTION WIDTH 12.9 % (11.5-14.5); WHITE BLOOD COUNT 7.9 X10'3 (4.5-11.0)
[2021-05-11 09:32] LABS: ALANINE AMINOTRANSFERASE 35 U/L (12-78); ALKALINE PHOSPHATASE 57 IU/L (46-116); ANION GAP 9 (8-16); ASPARTATE AMINO TRANSFERASE 17 U/L (10-37); BILIRUBIN,TOTAL 0.2 MG/DL (0.1-1.0); BLOOD UREA NITROGEN 16 MG/DL (7-18); BUN/CREATININE RATIO 17.2 (6.6-38.0); CALCIUM 8.5 MG/DL (8.5-10.1); CHLORIDE 108 MMOL/L (99-107); CREATININE 0.93 MG/DL (0.40-0.90); GLUCOSE 105 MG/DL (70-104); MAGNESIUM 2.4 MG/DL (1.5-2.4); PHOSPHORUS 3.8 MG/DL (2.3-4.5); POTASSIUM 4.1 MMOL/L (3.5-5.1); SODIUM 141 MMOL/L (135-145); TOTAL CARBON DIOXIDE 23.9 MMOL/L (24-32); eGFR 64 ML/MIN
[2021-05-11] MEDS ORDERED: METH4TAB81 PO (11:44)
[2021-05-11] MEDS ORDERED: GUAI600T45 PO (11:44)
[2021-05-11] MEDS ORDERED: BENZ-16 PO (11:44)
[2021-05-11] MEDS: normal saline 1000ml 1,000 ML IV SCH (14:22)
--- NOTE | 2021-05-11 14:51 | NUR ---
PT D/C WITH INSTRUCTIONS, UNDERSTANDING OF INSTRUCTIONS AND W/ALL BELONGINGS IN WHEELCHAIR ACCOMPANIED BY NURSING STAFF TO PRIVATE VEHICLE TO GO HOME AND F/U W/PCP
== END 2021-05-11 14:45 | disposition home or self-care (01) | DRG 137 ==
LOC: ER 13:37 → ED HOLD 19:29 → ORTHO 4S 22:50
PROVIDERS: ADMIT Family Medicine; ATTEND Family Medicine
PROC: XW033E5 Introduction of Remdesivir Anti-infective into Peripheral Vein, Percutaneous Approach, New Technology Group 5 (ICD-10-PCS; principal; 2021-05-07)
PROC: B32T1ZZ Computerized Tomography (CT Scan) of Left Pulmonary Artery using Low Osmolar Contrast (ICD-10-PCS; 2021-05-07)
PROC: B3201ZZ Computerized Tomography (CT Scan) of Thoracic Aorta using Low Osmolar Contrast (ICD-10-PCS; 2021-05-07)
PROC: B32S1ZZ Computerized Tomography (CT Scan) of Right Pulmonary Artery using Low Osmolar Contrast (ICD-10-PCS; 2021-05-07)
DX: U07.1 COVID-19 (principal); J96.01 Acute respiratory failure with hypoxia; J12.82 Pneumonia due to coronavirus disease 2019; D68.69 Other thrombophilia; J45.52 Severe persistent asthma with status asthmaticus; G62.9 Polyneuropathy, unspecified; I48.0 Paroxysmal atrial fibrillation; K21.9 Gastro-esophageal reflux disease without esophagitis; R00.0 Tachycardia, unspecified; J44.0 Chronic obstructive pulmonary disease with (acute) lower respiratory infection; E03.9 Hypothyroidism, unspecified; J44.1 Chronic obstructive pulmonary disease with (acute) exacerbation; I25.10 Atherosclerotic heart disease of native coronary artery without angina pectoris; M32.9 Systemic lupus erythematosus, unspecified; I25.2 Old myocardial infarction; Z79.890 Hormone replacement therapy; Z79.899 Other long term (current) drug therapy; Z88.0 Allergy status to penicillin; Z88.5 Allergy status to narcotic agent; Z90.49 Acquired absence of other specified parts of digestive tract
CPT/HCPCS: 36415; 71045; 71275; 80053; 80061; 80305; 81003; 83036; 83605; 83735; 84100; 84145; 84443; 84484; 85025; 85379; 87040; 87081; 87635; 93005; 93306; 94640; 94760; 96361; 96374; 96375; 97116; 97161; 97530; 99285; A7015; C9803; G0378; J1100; J1650; J2405; J2930; J7030; Q9967

== ENCOUNTER 2021-08-12 17:19 | Emergency (ER) | payer MEDICAID ==
[~2021-08-12] VITALS: Ht 154.9 cm; Wt 68.0 kg
[~2021-08-12 17:19] MED LIST changes: +ALBU2.5V10 NEB; -ALBU8.5H17 IH; +ATRIN IH; +BENZ-16 PO; +BUPR100T7 PO; -DOXY-224 PO; +GABA300C PO; -GABA600T13 PO; +GUAI600T45 PO; -LEVO100T9 PO; +LEVO125T PO; +METH4TAB81 PO; +MONT-40 PO; -PANT40SU2 PO; +VERA120T19 PO
[2021-08-12] MEDS ORDERED: racepinephrine 11.25mg/0.5ml nebule IH ONE (19:35)
[2021-08-12] MEDS ORDERED: methylPREDNISolone sod succ 125mg/2ml vial IV ONE (19:35)
[2021-08-12] MEDS ORDERED: normal saline 1000ML IV soln IVB ONE (19:35)
[2021-08-12 19:57] LABS: BASOPHILS % (AUTO) 0.6 % (0-1); EOSINOPHILS % (AUTO) 0.6 % (0-6); HEMATOCRIT 41.2 % (35.0-45.0); HEMOGLOBIN 13.7 g/dl (12.0-16.0); LYMPHOCYTES # (AUTO) 1.5 X10'3 (1.1-4.8); LYMPHOCYTES % (AUTO) 19.8 % (21-51); MEAN CORPUSCULAR HEMOGLOBIN 31.6 PG (27.0-31.0); MEAN CORPUSCULAR HGB CONC 33.3 g/dL (33.0-36.5); MEAN CORPUSCULAR VOLUME 94.7 FL (78-98); MEAN PLATELET VOLUME 7.7 FL (7.4-10.4); MONOCYTES # (AUTO) 0.8 X10'3 (0-0.9); MONOCYTES % (AUTO) 10.3 % (2-12); NEUTROPHILS # (AUTO) 5.2 X10'3 (1.8-7.7); NEUTROPHILS % (AUTO) 68.7 % (42-75); PLATELET COUNT 351 X10'3 (140-440); RED BLOOD COUNT 4.35 X10'6 (4.20-5.60); RED CELL DISTRIBUTION WIDTH 13.1 % (11.5-14.5); WHITE BLOOD COUNT 7.6 X10'3 (4.5-11.0)
[2021-08-12 20:07] LABS: D-DIMER 0.45 MG/L FEU (0-0.50)
[2021-08-12 20:10] LABS: ALANINE AMINOTRANSFERASE 22 U/L (12-78); ALBUMIN 3.7 G/DL (3.4-5.0); ALBUMIN/GLOBULIN RATIO 1.2 (1.1-1.5); ALKALINE PHOSPHATASE 63 IU/L (46-116); ANION GAP 10 (8-16); ASPARTATE AMINO TRANSFERASE 15 U/L (10-37); BILIRUBIN,TOTAL 0.3 MG/DL (0.1-1.0); BLOOD UREA NITROGEN 15 MG/DL (7-18); BUN/CREATININE RATIO 12.8 (6.6-38.0); C-REACTIVE PROTEIN 0.09 MG/DL (0.0-0.5); CALCIUM 8.7 MG/DL (8.5-10.1); CHLORIDE 107 MMOL/L (99-107); CREATININE 1.17 MG/DL (0.40-0.90); GLUCOSE 92 MG/DL (70-104); POTASSIUM 4.2 MMOL/L (3.5-5.1); SODIUM 141 MMOL/L (135-145); TOTAL CARBON DIOXIDE 23.6 MMOL/L (24-32); TOTAL PROTEIN 6.8 G/DL (6.4-8.2); eGFR 49 ML/MIN
[2021-08-12] MEDS ORDERED: famotidine/PF 10 mg/ml inj IV ONE (20:50)
[2021-08-12] MEDS ORDERED: diphenhydrAMINE 25 MG/10 ML UD oral solution PO ONE (20:50)
[2021-08-12] MEDS ORDERED: epiNEPHrine 1 mg/ml inj SQ ONE (20:50)
[2021-08-12] MEDS ORDERED: LIDOcaine 40mg/ml topical solution IH ONE (20:50)
[2021-08-12] MEDS ORDERED: diphenhydrAMINE 50 mg/ml inj IV ONE (20:50)
[2021-08-12] MEDS ORDERED: LIDOcaine 4% (40 mg/ml) topical solution 50ml MM ONE (20:55)
[2021-08-12] MEDS ORDERED: LORazepam 2 mg/ml vial IV ONE (21:00)
[2021-08-12] MEDS ORDERED: iohexol 300mg/ml 100ml inj. ONE (21:28)
[2021-08-12 21:52] VITALS: BP 115/46
[2021-08-12] MEDS ORDERED: EPIN0.3P3 IM (23:14)
[2021-08-12] MEDS ORDERED: FAMO-128 PO (23:14)
[2021-08-12] MEDS ORDERED: DEXA6TAB6 PO (23:14)
[2021-08-12] MEDS ORDERED: DIPH25CA83 PO (23:14)
== END 2021-08-12 23:33 | disposition home or self-care (01) ==
LOC: ER 17:19
DX: J38.5 Laryngeal spasm (principal); J45.909 Unspecified asthma, uncomplicated; I48.91 Unspecified atrial fibrillation; I25.10 Atherosclerotic heart disease of native coronary artery without angina pectoris; I25.2 Old myocardial infarction; Z90.49 Acquired absence of other specified parts of digestive tract; Z88.0 Allergy status to penicillin; Z88.8 Allergy status to other drugs, medicaments and biological substances; Z79.899 Other long term (current) drug therapy
CPT/HCPCS: 36415; 70491; 71045; 80053; 84145; 85025; 85379; 85651; 86140; 94640; 96372; 96374; 96375; 99285; J0171; J1200; J2060; J2930; J3490; J7030; Q0163; Q9967; 94760; 96361

== ENCOUNTER 2021-11-29 17:22 | Emergency (ER) | payer MEDICAID ==
[~2021-11-29] VITALS: Ht 154.9 cm; Wt 68.2 kg
[~2021-11-29 17:22] MED LIST changes: +BUPR100T15 PO; -BUPR100T7 PO; +DEXA6TAB6 PO; +DIPH25CA83 PO; +EPIN0.3P3 IM; +FAMO-128 PO
[2021-11-29 17:53] VITALS: BP 110/72
[2021-11-29] MEDS ORDERED: HYDROcodone/acetaminophen 10/325mg tab PO ONE (18:55)
[2021-11-29] MEDS ORDERED: IBUP-1986 PO (19:01)
== END 2021-11-29 19:27 | disposition home or self-care (01) ==
LOC: ER 17:50
DX: S93.402A Sprain of unspecified ligament of left ankle, initial encounter (principal); I48.91 Unspecified atrial fibrillation; I25.10 Atherosclerotic heart disease of native coronary artery without angina pectoris; I25.2 Old myocardial infarction; J45.909 Unspecified asthma, uncomplicated; E03.9 Hypothyroidism, unspecified; Z90.49 Acquired absence of other specified parts of digestive tract; Z88.0 Allergy status to penicillin; Z79.899 Other long term (current) drug therapy; X50.1XXA Overexertion from prolonged static or awkward postures, initial encounter; Y93.89 Activity, other specified; Y92.89 Other specified places as the place of occurrence of the external cause; Y99.8 Other external cause status
CPT/HCPCS: 29515; 73610; 99283

== ENCOUNTER 2022-04-20 14:29 | Inpatient (IN) | payer MEDICAID ==
[~2022-04-20] VITALS: Ht 154.9 cm; Wt 83.0 kg
[~2022-04-20 14:29] MED LIST changes: +IBUP-1986 PO
[2022-04-20] MEDS ORDERED: diphenhydrAMINE 50 mg/ml inj IV ONE ×2 (14:35→22:55)
[2022-04-20] MEDS ORDERED: famotidine/PF 10 mg/ml inj IV ONE (14:35)
[2022-04-20] MEDS ORDERED: methylPREDNISolone sod succ 125mg/2ml vial IV ONE (14:35)
[2022-04-20] MEDS ORDERED: epiNEPHrine 1 mg/ml inj SQ ONE (14:35)
[2022-04-20] MEDS ORDERED: epiNEPHrine 1 mg/ml inj SQ STA (14:54)
--- NOTE | 2022-04-20 16:30 | NUR ---
provider at bedside.
[2022-04-20] MEDS: epiNEPHrine 1 mg/ml inj IM STA ×2 (16:48→18:12)
[2022-04-20] MEDS ORDERED: cetirizine 10mg tablet PO SCH (16:50)
--- NOTE | 2022-04-20 16:54 | NUR ---
report to cesar peñaloza
--- NOTE | 2022-04-20 17:06 | NUR ---
PO MED GIVEN
[2022-04-20] MEDS ORDERED: EPIN0.3P3 IM ×2 (17:10)
--- NOTE | 2022-04-20 17:15 | NUR ---
pt moved back to er bed 7 with plans to start epi drip per dr. JACINTO. pt continues to have urticaria on chest, neck and back. pt given third dose of IM epi.
[2022-04-20] MEDS ORDERED: epiNEPHrine 5 MG in NS 250ml IV.SOLN IV SCH ×2 (17:25→17:28)
--- NOTE | 2022-04-20 17:49 | NUR ---
hospitalist at bedside.
--- NOTE | 2022-04-20 18:05 | NUR ---
at bedside. epi drip started. pharmacy called and at bedside for clarification. pt and family member updated on pt status and poc to admit.
[2022-04-20 18:20] LABS: BASOPHILS % (AUTO) 0.2 % (0-1); EOSINOPHILS % (AUTO) 0 % (0-6); HEMATOCRIT 42.1 % (35.0-45.0); LYMPHOCYTES # (AUTO) 0.8 X10'3 (1.1-4.8); LYMPHOCYTES % (AUTO) 4.3 % (21-51); MEAN CORPUSCULAR HGB CONC 33.3 g/dL (33.0-36.5); MEAN CORPUSCULAR VOLUME 93.2 FL (78-98); MEAN PLATELET VOLUME 7.9 FL (7.4-10.4); MONOCYTES # (AUTO) 0.4 X10'3 (0-0.9); MONOCYTES % (AUTO) 2.5 % (2-12); NEUTROPHILS # (AUTO) 16.8 X10'3 (1.8-7.7); PLATELET COUNT 356 X10'3 (140-440); RED BLOOD COUNT 4.52 X10'6 (4.20-5.60); RED CELL DISTRIBUTION WIDTH 13.8 % (11.5-14.5)
[2022-04-20] MEDS ORDERED: racepinephrine 11.25mg/0.5ml nebule IH ONE (18:20)
[2022-04-20 18:34] LABS: ALANINE AMINOTRANSFERASE 30 U/L (12-78); ALBUMIN 4.1 G/DL (3.4-5.0); ALBUMIN/GLOBULIN RATIO 1.4 (1.1-1.5); ALKALINE PHOSPHATASE 87 IU/L (46-116); ANION GAP 13 (8-16); ASPARTATE AMINO TRANSFERASE 24 U/L (10-37); BILIRUBIN,TOTAL 0.3 MG/DL (0.1-1.0); BLOOD UREA NITROGEN 19 MG/DL (7-18); BUN/CREATININE RATIO 16.1 (6.6-38.0); CHLORIDE 102 MMOL/L (99-107); CREATININE 1.18 MG/DL (0.40-0.90); GLUCOSE 124 MG/DL (70-104); POTASSIUM 4.1 MMOL/L (3.5-5.1); SODIUM 139 MMOL/L (135-145); TOTAL CARBON DIOXIDE 24.1 MMOL/L (24-32); eGFR 48 ML/MIN
[2022-04-20] MEDS ORDERED: LORazepam 2 mg/ml vial IV ONE (19:45)
[2022-04-20] MEDS ORDERED: ringers solution, lacted 1,000 ML IV ONE ×2 (20:00→20:25)
[2022-04-20] MEDS ORDERED: tranexamic acid 1gm/0.7% sal. 100 ML IV ONE (20:10)
[2022-04-20] MEDS ORDERED: tranexamic acid inj. 1,000 MG in normal saline 100ml IV soln 100 ML IV ONE (20:17)
[2022-04-20] MEDS: ringers solution, lacted 1,000 ML IV SCH ×2 (20:55→22:56)
[2022-04-20] MEDS: diphenhydrAMINE 50 mg/ml inj IV PRN (22:25)
--- NOTE | 2022-04-20 22:25 | NUR ---
PT C/O ITCHING ALLOVER BODY. BENADRYL 25MG IV GIVEN.
[2022-04-20] MEDS ORDERED: methylPREDNISolone sod succ 125mg/2ml vial IV SCH (23:05)
[2022-04-20] MEDS: heparin, porcine 5000 units/ml vial SQ SCH (23:40)
[2022-04-21] VITALS (13 sets, daily range): BP systolic 100–128; BP diastolic 53–78
--- NOTE | 2022-04-21 01:10 | NUR ---
PT ARRIVED FROM ED WITH RN. ALERT AND ORIENTEDX4. STATED FEELING TIRED. PT WAS ABLE TO WALK STEADY TO THE BED FROM [facility]. SKIN RASHES ON UPPER CHEST,BACK AND B/L GROINS PRESENT BUT GOT BETTER PER PATIENT AND ED RN. NO TONGUE OR LIPS SWELLING NOTED. WILL CONT TO MONITOR.
[2022-04-21] MEDS ORDERED: methylPREDNISolone sod succ 125mg/2ml vial IV SCH (02:00)
[2022-04-21] MEDS: diphenhydrAMINE 50 mg/ml inj IV PRN ×3 (03:15→20:12)
--- NOTE | 2022-04-21 04:26 | NUR ---
AT 233-PT COMPLAINED OF ITCHING ALL OVER AND HEADACHE,ASKING FOR PAIN MED. CALLED DR. NORTH. DID NOT ANSWER, SO LEFT MSG. AT 309-NO CALL BACK. CALLED AGAIN AND LEFT MSG. NOTIFIED CN. ALSO CALLED AND LEFT MSG. WILL WAIT FOR CALL BACK.
--- NOTE | 2022-04-21 06:17 | NUR ---
PT RESTING IN BED CALMLY. NO SIGNS OF DISTRESS NOTED AT THE MOMENT. CALL LYMAN WITHIN REACH. REPORT GIVEN TO ONCOMING NURSE.
[2022-04-21 06:24] LABS: BASOPHILS % (AUTO) 0.3 % (0-1); EOSINOPHILS % (AUTO) 0 % (0-6); HEMATOCRIT 39.5 % (35.0-45.0); HEMOGLOBIN 12.9 g/dl (12.0-16.0); LYMPHOCYTES # (AUTO) 0.7 X10'3 (1.1-4.8); LYMPHOCYTES % (AUTO) 7.2 % (21-51); MEAN CORPUSCULAR HEMOGLOBIN 30.9 PG (27.0-31.0); MEAN CORPUSCULAR HGB CONC 32.8 g/dL (33.0-36.5); MEAN CORPUSCULAR VOLUME 94.3 FL (78-98); MEAN PLATELET VOLUME 8.7 FL (7.4-10.4); MONOCYTES # (AUTO) 0.1 X10'3 (0-0.9); MONOCYTES % (AUTO) 0.9 % (2-12); NEUTROPHILS # (AUTO) 8.6 X10'3 (1.8-7.7); NEUTROPHILS % (AUTO) 91.6 % (42-75); PLATELET COUNT 280 X10'3 (140-440); RED BLOOD COUNT 4.19 X10'6 (4.20-5.60); RED CELL DISTRIBUTION WIDTH 14.2 % (11.5-14.5); WHITE BLOOD COUNT 9.4 X10'3 (4.5-11.0)
[2022-04-21 06:46] LABS: ALANINE AMINOTRANSFERASE 31 U/L (12-78); ALBUMIN 3.6 G/DL (3.4-5.0); ALBUMIN/GLOBULIN RATIO 1.3 (1.1-1.5); ALKALINE PHOSPHATASE 68 IU/L (46-116); ANION GAP 14 (8-16); ASPARTATE AMINO TRANSFERASE 27 U/L (10-37); BILIRUBIN,TOTAL 0.3 MG/DL (0.1-1.0); BLOOD UREA NITROGEN 12 MG/DL (7-18); BUN/CREATININE RATIO 13.8 (6.6-38.0); CALCIUM 8.7 MG/DL (8.5-10.1); CHLORIDE 106 MMOL/L (99-107); CREATININE 0.87 MG/DL (0.40-0.90); GLUCOSE 129 MG/DL (70-104); MAGNESIUM 2.2 MG/DL (1.5-2.4); POTASSIUM 4.1 MMOL/L (3.5-5.1); SODIUM 139 MMOL/L (135-145); TOTAL CARBON DIOXIDE 19.5 MMOL/L (24-32); TOTAL PROTEIN 6.4 G/DL (6.4-8.2); eGFR 69 ML/MIN
[2022-04-21] MEDS ORDERED: famotidine/PF 10 mg/ml inj IV SCH (08:00)
[2022-04-21] MEDS ORDERED: racepinephrine 11.25mg/0.5ml nebule IH PRN (08:30)
[2022-04-21] MEDS ORDERED: acetaminophen 325mg tablet PO PRN (08:30)
--- NOTE | 2022-04-21 11:18 | NUR ---
RN TC: Pt placed on carb controlled diet this AM w/ pt reporting hx DM. Per EMR, pt A1C hx 5.9% 05/27' admit w/ no hx DM at that time on heart healthy diet eating well w/ Glu WNL not receiving Glu coverage. Pt w/ no home DM meds or prior DM hx per MD notes this admit as well. Pt did have Glu 213mg/dl last night following two steroid doses and Glu 152mg/dl without receiving Glu coverage per EMR. RD d/w RN, recommend new A1C this admit and liberalizing from carb controlled restriction as medically indicated pending new A1C. Addendum: 04/21/22 at [address] Amended: Links added.
[2022-04-21] MEDS: heparin, porcine 5000 units/ml vial SQ SCH ×2 (11:38→16:03)
[2022-04-21] MEDS: predniSONE 20 mg tablet PO SCH (13:35)
[2022-04-21] MEDS: ringers solution, lacted 1,000 ML IV SCH (16:03)
[2022-04-21] MEDS ORDERED: LEVO100T9 PO (17:09)
[2022-04-21] MEDS ORDERED: BUPR-72 PO (17:10)
[2022-04-21] MEDS ORDERED: METF-1203 PO (17:10)
[2022-04-21] MEDS ORDERED: LORA10TA7 PO (18:21)
[2022-04-21] MEDS ORDERED: BUDE10.2 INH (18:21)
[2022-04-21] MEDS ORDERED: DIPH25CA83 PO (18:21)
[2022-04-21] MEDS ORDERED: LEVO125T PO (18:21)
[2022-04-21] MEDS ORDERED: cyclobenzaprine 10mg tablet PO PRN (19:25)
--- NOTE | 2022-04-21 19:25 | NUR ---
Called and spoke with Dr. Del Rio in regards to pt feeling like she needs benadryl but has not been enough time since ordered TID. Also informed Dr Del Rio that pt requesting her home dose flexeril. New orders for flexeril and frequency of benadryl. See orders for details.
--- NOTE | 2022-04-21 19:29 | NUR ---
Patient in room ORTHO 4015. I have received report from FAVIOLA Esquivel and had the opportunity to ask questions and assume patient care. Pt resting in bed.
[2022-04-21] MEDS: famotidine 20mg tablet PO SCH (20:11)
[2022-04-21] MEDS: albuterol 2.5 MG/3 ML nebule NEB PRN (20:24)
[2022-04-21] MEDS: budesonide 0.5mg/2ml UD nebule IH SCH (20:25)
[2022-04-22] MEDS: diphenhydrAMINE 50 mg/ml inj IV PRN (00:29)
[2022-04-22] MEDS: heparin, porcine 5000 units/ml vial SQ SCH ×2 (00:29→08:26)
[2022-04-22 06:44] VITALS: BP 88/49
[2022-04-22 06:55] VITALS: BP 118/61
[2022-04-22] MEDS ORDERED: cyclobenzaprine 10mg tablet PO PRN (07:40)
[2022-04-22] MEDS ORDERED: albuterol 2.5 MG/3 ML nebule NEB PRN (07:40)
[2022-04-22] MEDS: albuterol 2.5 MG/3 ML nebule NEB PRN (07:43)
[2022-04-22] MEDS: budesonide 0.5mg/2ml UD nebule IH SCH (07:43)
[2022-04-22] MEDS ORDERED: levoTHYROXINE 125mcg tablet PO SCH (08:00)
[2022-04-22] MEDS ORDERED: loratadine 10mg tablet PO SCH (08:00)
[2022-04-22] MEDS ORDERED: pantoprazole 40mg Tablet.DR PO SCH (08:00)
[2022-04-22] MEDS ORDERED: cetirizine 10mg tablet PO SCH (08:00)
[2022-04-22] MEDS ORDERED: albuterol 2.5 MG/3 ML nebule NEB SCH ×2 (08:00→08:08)
[2022-04-22] MEDS ORDERED: buPROPion SR 150mg tablet PO SCH (08:00)
[2022-04-22] MEDS ORDERED: metFORMIN 500mg tablet PO SCH (08:00)
[2022-04-22] MEDS: predniSONE 20 mg tablet PO SCH (08:26)
[2022-04-22] MEDS: famotidine 20mg tablet PO SCH (08:27)
[2022-04-22 10:00] VITALS: BP 93/50
[2022-04-22] MEDS ORDERED: diphenhydrAMINE 25 MG/10 ML UD oral solution PO PRN (11:50)
[2022-04-22] MEDS ORDERED: FAMO-280 MT (13:11)
[2022-04-22] MEDS ORDERED: EPIN0.3P3 IM (13:11)
[2022-04-22] MEDS ORDERED: PRED10TA23 PO (13:11)
--- NOTE | 2022-04-22 14:45 | NUR ---
Patient discharged in stable condition to home. iv removed tip intact, no complications. Belongings sent with pt. pt educated on discharge follow up
[2022-04-22] MEDS ORDERED: budesonide 0.5mg/2ml UD nebule IH SCH (20:00)
[2022-04-22] MEDS ORDERED: diphenhydrAMINE 25mg capsule PO SCH (21:00)
[2022-04-22] MEDS ORDERED: gabapentin 300mg capsule PO SCH (21:00)
== END 2022-04-22 14:30 | disposition home or self-care (01) | DRG 811 ==
LOC: ER 14:29 → ED HOLD 19:43 → ICU 2S 04-21 01:46 → ORTHO 4S 04-21 15:41
PROVIDERS: ADMIT Internal Medicine; ATTEND Internal Medicine
DX: T78.3XXA Angioneurotic edema, initial encounter (principal); N17.0 Acute kidney failure with tubular necrosis; D72.829 Elevated white blood cell count, unspecified; E03.9 Hypothyroidism, unspecified; E66.9 Obesity, unspecified; E11.9 Type 2 diabetes mellitus without complications; I48.91 Unspecified atrial fibrillation; I10 Essential (primary) hypertension; I25.10 Atherosclerotic heart disease of native coronary artery without angina pectoris; X58.XXXA Exposure to other specified factors, initial encounter; R00.0 Tachycardia, unspecified; F32.A Depression, unspecified; K21.9 Gastro-esophageal reflux disease without esophagitis; J44.9 Chronic obstructive pulmonary disease, unspecified; R13.10 Dysphagia, unspecified; Z79.51 Long term (current) use of inhaled steroids; Z79.84 Long term (current) use of oral hypoglycemic drugs; I25.2 Old myocardial infarction; Z79.890 Hormone replacement therapy; Z88.0 Allergy status to penicillin; Z88.5 Allergy status to narcotic agent; Z90.49 Acquired absence of other specified parts of digestive tract; Z79.899 Other long term (current) drug therapy; Z68.34 Body mass index [BMI] 34.0-34.9, adult
CPT/HCPCS: 36415; 70360; 71045; 80053; 82948; 83735; 84100; 85025; 87081; 94640; 94760; 96372; 96374; 96375; 99285; A4615; G0378; J0171; J1200; J1644; J2060; J2930; J3490; J7050; J7120; J7512

== ENCOUNTER 2022-11-02 13:26 | Outpatient (CLI) | payer MEDICAID ==
[~2022-11-02 13:26] MED LIST changes: -ATRIN IH; -BENZ-16 PO; +BUPR-72 PO; -BUPR100T15 PO; -DEXA6TAB6 PO; -FAMO-128 PO; +FAMO-280 MT; -GUAI600T45 PO; -IBUP-1986 PO; +LORA10TA7 PO; +METF-1203 PO; -METH4TAB81 PO; -MONT-40 PO; -VERA120T19 PO
== END 2022-11-02 23:59 | disposition home or self-care (01) ==
LOC: RAD 13:26
PROVIDERS: ATTEND Internal Medicine Pulmonary Disease
DX: J98.11 Atelectasis (principal); J44.9 Chronic obstructive pulmonary disease, unspecified; R06.09 Other forms of dyspnea; J45.50 Severe persistent asthma, uncomplicated; M47.815 Spondylosis without myelopathy or radiculopathy, thoracolumbar region; Z90.49 Acquired absence of other specified parts of digestive tract
CPT/HCPCS: 71250

== ENCOUNTER 2023-01-23 14:49 | Inpatient (IN) | payer MEDICAID ==
[~2023-01-23] VITALS: Ht 154.9 cm; Wt 85.0 kg
[2023-01-23] MEDS ORDERED: ipratropium/albuterol 3ml nebule NEB ONE (14:55)
[2023-01-23] MEDS ORDERED: normal saline 1000ML IV soln IVB ONE (15:00)
[2023-01-23] MEDS ORDERED: methylPREDNISolone sod succ 125mg/2ml vial IV ONE (15:00)
[2023-01-23] MEDS ORDERED: magnesium 2GM in 50ml NS 50 ML IV ONE (15:00)
[2023-01-23] MEDS ORDERED: albuterol 2.5 MG/3 ML nebule CONTNEB PRN (15:10)
[2023-01-23] MEDS ORDERED: LORazepam 2 mg/ml vial IV ONE (16:50)
[2023-01-23] MEDS ORDERED: albuterol 2.5 MG/3 ML nebule NEB ONE (16:53)
[2023-01-23 17:31] LABS: BASOPHILS % (AUTO) 0.2 % (0-1); EOSINOPHILS % (AUTO) 0.2 % (0-6); HEMATOCRIT 43.3 % (35.0-45.0); HEMOGLOBIN 14.3 g/dl (12.0-16.0); LYMPHOCYTES # (AUTO) 1.4 X10'3 (1.1-4.8); LYMPHOCYTES % (AUTO) 13.1 % (21-51); MEAN CORPUSCULAR HEMOGLOBIN 30.7 PG (27.0-31.0); MEAN CORPUSCULAR HGB CONC 33.1 g/dL (33.0-36.5); MEAN CORPUSCULAR VOLUME 92.8 FL (78-98); MEAN PLATELET VOLUME 7.5 FL (7.4-10.4); MONOCYTES # (AUTO) 0.3 X10'3 (0-0.9); MONOCYTES % (AUTO) 2.5 % (2-12); NEUTROPHILS # (AUTO) 9.2 X10'3 (1.8-7.7); PLATELET COUNT 308 X10'3 (140-440); RED BLOOD COUNT 4.67 X10'6 (4.20-5.60); RED CELL DISTRIBUTION WIDTH 13.1 % (11.5-14.5); WHITE BLOOD COUNT 10.9 X10'3 (4.5-11.0)
[2023-01-23] MEDS ORDERED: BUDE180A INH (17:32)
[2023-01-23] MEDS ORDERED: PRED10TA23 PO (17:32)
[2023-01-23] MEDS ORDERED: ALBU6.7H14 INH (17:32)
[2023-01-23] MEDS ORDERED: LORazepam 1 MG tablet PO ONE (17:35)
[2023-01-23 17:41] LABS: ALANINE AMINOTRANSFERASE 38 U/L (12-78); ALBUMIN/GLOBULIN RATIO 1.2 (1.1-1.5); ANION GAP 16 (8-16); ASPARTATE AMINO TRANSFERASE 25 U/L (10-37); BILIRUBIN,TOTAL 0.3 MG/DL (0.1-1.0); BLOOD UREA NITROGEN 13 MG/DL (7-18); BUN/CREATININE RATIO 9.9 (10.0-20.0); CALCIUM 9.2 MG/DL (8.5-10.1); CHLORIDE 102 MMOL/L (99-107); CREATININE 1.31 MG/DL (0.40-0.90); GLUCOSE 129 MG/DL (70-104); POTASSIUM 3.1 MMOL/L (3.5-5.1); SODIUM 137 MMOL/L (135-145); TOTAL CARBON DIOXIDE 18.7 MMOL/L (24-32); TOTAL PROTEIN 7.3 G/DL (6.4-8.2); eGFR 43 ML/MIN
[2023-01-23 17:42] LABS: ALKALINE PHOSPHATASE 95 IU/L (46-116)
[2023-01-23 18:00] VITALS: BP 155/63
[2023-01-23] MEDS ORDERED: ALB0.5UD IH (18:07)
[2023-01-23] MEDS: ipratropium/albuterol 3ml nebule NEB SCH ×2 (19:18→23:14)
[2023-01-23] MEDS ORDERED: potassium Cl 40MEQ/1/2NS 520ml 520 ML IV PRN (19:30)
[2023-01-23] MEDS ORDERED: magnesium Cl slow-release 64mg tablet PO PRN (19:30)
[2023-01-23] MEDS ORDERED: mag hydrox/Alum hydrox/simeth 30ml oral suspension PO PRN (19:30)
[2023-01-23] MEDS ORDERED: ondansetron/PF 4mg/2ml inj IV PRN (19:30)
[2023-01-23] MEDS ORDERED: magnesium 2GM in 50ml NS 50 ML IV PRN (19:30)
[2023-01-23] MEDS ORDERED: potassium Cl 20 mEq SR tablet PO PRN ×2 (19:30)
[2023-01-23] MEDS ORDERED: magnesium 4gm in 100ml NS 100 ML IV PRN (19:30)
[2023-01-23] MEDS ORDERED: albuterol 2.5 MG/3 ML nebule NEB PRN (19:35)
[2023-01-23] MEDS: K and/or MAG REPLACEMENT MC SCH (20:00)
[2023-01-23] MEDS: docusate sod 100mg capsule PO SCH (20:10)
[2023-01-23] MEDS: heparin, porcine 5000 units/ml vial SQ SCH (20:11)
--- NOTE | 2023-01-23 20:52 | NUR ---
report called to floor rn pt tx to room 3014 by tech
--- NOTE | 2023-01-23 21:05 | NUR ---
Patient arrived to the floor via gurney on room air. Was able to ambulate to bed. Will assess and admit.
[2023-01-23 21:30] VITALS: BP 110/58
[2023-01-23] MEDS: LORazepam 1 MG tablet PO PRN (21:54)
--- NOTE | 2023-01-23 22:00 | NUR ---
Patient refused MRSA swab.
[2023-01-23] MEDS ORDERED: PIRO20CA2 PO (22:04)
[2023-01-23] MEDS ORDERED: VERA120T19 PO (22:04)
[2023-01-24] MEDS: methylPREDNISolone sod succ/PF 40mg inj. IV SCH ×4 (00:08→23:19)
[2023-01-24 02:00] VITALS: BP 102/43
[2023-01-24] MEDS: ipratropium/albuterol 3ml nebule NEB SCH ×6 (03:19→23:20)
[2023-01-24 06:00] VITALS: BP 103/57
--- NOTE | 2023-01-24 06:21 | NUR ---
Reported off to [facility]. Patient is awake and alert on room air. In no apparent distress. Call light and items of frequent use within reach.
--- NOTE | 2023-01-24 06:24 | NUR ---
Received report from FAVIOLA Archer. Reviewed plan of care. Patient in no acute distress at this time; bed locked/ lowest position, call emerson within reach.
[2023-01-24 06:58] LABS: BASOPHILS % (AUTO) 0.2 % (0-1); EOSINOPHILS % (AUTO) 0 % (0-6); HEMATOCRIT 38.7 % (35.0-45.0); HEMOGLOBIN 12.5 g/dl (12.0-16.0); LYMPHOCYTES # (AUTO) 0.6 X10'3 (1.1-4.8); MEAN CORPUSCULAR HEMOGLOBIN 30.9 PG (27.0-31.0); MEAN CORPUSCULAR HGB CONC 32.2 g/dL (33.0-36.5); MEAN CORPUSCULAR VOLUME 95.8 FL (78-98); MEAN PLATELET VOLUME 7.8 FL (7.4-10.4); MONOCYTES # (AUTO) 0.2 X10'3 (0-0.9); MONOCYTES % (AUTO) 1.4 % (2-12); NEUTROPHILS # (AUTO) 10.6 X10'3 (1.8-7.7); NEUTROPHILS % (AUTO) 93.4 % (42-75); PLATELET COUNT 283 X10'3 (140-440); RED BLOOD COUNT 4.04 X10'6 (4.20-5.60); RED CELL DISTRIBUTION WIDTH 13.3 % (11.5-14.5); WHITE BLOOD COUNT 11.3 X10'3 (4.5-11.0)
[2023-01-24 07:10] LABS: ALANINE AMINOTRANSFERASE 32 U/L (12-78); ALBUMIN 3.3 G/DL (3.4-5.0); ALBUMIN/GLOBULIN RATIO 1.1 (1.1-1.5); ALKALINE PHOSPHATASE 71 IU/L (46-116); ANION GAP 14 (8-16); ASPARTATE AMINO TRANSFERASE 19 U/L (10-37); BILIRUBIN,TOTAL 0.2 MG/DL (0.1-1.0); BLOOD UREA NITROGEN 11 MG/DL (7-18); CALCIUM 8.5 MG/DL (8.5-10.1); CHLORIDE 109 MMOL/L (99-107); GLUCOSE 169 MG/DL (70-104); POTASSIUM 4.3 MMOL/L (3.5-5.1); SODIUM 139 MMOL/L (135-145); TOTAL CARBON DIOXIDE 15.8 MMOL/L (24-32); TOTAL PROTEIN 6.2 G/DL (6.4-8.2); eGFR 52 ML/MIN
[2023-01-24] MEDS: buPROPion SR 150mg tablet PO SCH (07:40)
[2023-01-24] MEDS: loratadine 10mg tablet PO SCH (07:40)
[2023-01-24] MEDS: heparin, porcine 5000 units/ml vial SQ SCH ×2 (07:41→19:03)
[2023-01-24] MEDS: pantoprazole 40mg Tablet.DR PO SCH ×2 (07:42→07:46)
[2023-01-24] MEDS: levoTHYROXINE 125mcg tablet PO SCH (07:42)
[2023-01-24] MEDS: verapamil tablet 120 MG TABLET PO SCH (07:42)
[2023-01-24] MEDS: K and/or MAG REPLACEMENT MC SCH ×2 (07:42→20:00)
[2023-01-24] MEDS: docusate sod 100mg capsule PO SCH ×2 (07:46→19:02)
[2023-01-24] MEDS ORDERED: famotidine 10mg tablet PO SCH (08:00)
[2023-01-24] MEDS: BUDESONIDE 180 MCG AER.POW.BA INH SCH ×2 (08:00→19:26)
[2023-01-24] MEDS: LORazepam 1 MG tablet PO PRN ×2 (08:02→13:26)
[2023-01-24 10:00] VITALS: BP 110/55
--- NOTE | 2023-01-24 10:08 | NUR ---
PAGE TO RESPIRATORY 3014a QUILLAN. STAT ABG ORDERED BY DR LOVELACE FOR 3014a NOT 3014b . ROSA M DE SOUZA@[phone]
[2023-01-24] MEDS ORDERED: iohexol 350MG/ML 100ml bottle IV ONE (10:44)
[2023-01-24 10:59] LABS: ABG BASE EXCESS -6.7 mmol/L (-2.0-2.0); ABG HCO3 16.1 mmol/L (22.0-26.0); ABG OXYGEN SATURATION 95.3 % (94-97); ABG PCO2 (T) 25.3 mmHg (32.0-45.0); ABG PO2 (T) 71.8 mmHg (75.0-100.0); ALLEN'S TEST POSITIVE; FCOHb 0.3 % (0.0-3.9); FLOW 0 L/min; FMetHb 0.4 % (0.0-1.5); FO2Hb 94.6 % (94-97); PATIENT TEMPERATURE 36.7; TOTAL HEMOGLOBIN 13.4 G/dl (12.0-16.0)
--- NOTE | 2023-01-24 11:14 | NUR ---
RR:19 HR, 110, O2: 96% RATemo: 98.2, LS: clear/ diminished bilat. Patient is in no acute distress at this time. ABG was performed, patient is iin highfowlers. IS at bedside. Respiratory came and performed a breathing tx which resolved her SOB. Patient is now on her way to CT>
--- NOTE | 2023-01-24 11:25 | NUR ---
Notified Dr. Moreno of the ABG that was just performed. Also proceeding with autoimmune testing as patient states she has a hx of.
[2023-01-24] MEDS: montelukast 10mg tablet PO SCH (17:45)
[2023-01-24 18:00] VITALS: BP 119/47
--- NOTE | 2023-01-24 18:30 | NUR ---
Received report from primary care nurse Shantelle MAURICIO. Assumed patient care. Patient is awake and alert on room air. In no apparent distress. Visiting with her boyfriend. Call light and items of frequent use within reach. Will continue to monitor for changes.
[2023-01-24] MEDS ORDERED: PERFLUTREN PROTEIN-A MICROSPHR (Optison) 0.22 MG/ML 3ML VIAL IV ONE (18:35)
[2023-01-24] MEDS: famotidine 10mg tablet PO SCH (19:01)
[2023-01-24] MEDS: DOXYCYCLINE 100MG CAPSULE PO SCH (19:02)
[2023-01-24] MEDS: diphenhydrAMINE 25mg capsule PO SCH (21:01)
[2023-01-24] MEDS: gabapentin 300mg capsule PO SCH (21:01)
[2023-01-24] MEDS: cyclobenzaprine 10mg tablet PO PRN (21:01)
[2023-01-24 22:00] VITALS: BP 116/57
[2023-01-25 02:00] VITALS: BP 103/53
[2023-01-25] MEDS: ipratropium/albuterol 3ml nebule NEB SCH ×6 (03:30→23:23)
[2023-01-25 06:00] VITALS: BP 100/59
--- NOTE | 2023-01-25 06:18 | NUR ---
Patient in room PCU 3014. I have received report from Suzi SALMERON and had the opportunity to ask questions and assume patient care.
--- NOTE | 2023-01-25 06:20 | NUR ---
Reported off to Nehal SALMERON. Patient is awake and alert on room air. In no apparent distress. Call light and items of frequent use within reach.
[2023-01-25 07:01] LABS: MEAN CORPUSCULAR HGB CONC 32.7 g/dL (33.0-36.5)
[2023-01-25 07:02] LABS: BASOPHILS % (AUTO) 0.2 % (0-1); EOSINOPHILS # (AUTO) 0.1 X10'3 (0-0.9); EOSINOPHILS % (AUTO) 0.4 % (0-6); HEMATOCRIT 36.7 % (35.0-45.0); LYMPHOCYTES # (AUTO) 0.9 X10'3 (1.1-4.8); LYMPHOCYTES % (AUTO) 4.7 % (21-51); MEAN CORPUSCULAR HEMOGLOBIN 30.9 PG (27.0-31.0); MEAN CORPUSCULAR VOLUME 94.7 FL (78-98); MEAN PLATELET VOLUME 9.1 FL (7.4-10.4); MONOCYTES % (AUTO) 5.3 % (2-12); NEUTROPHILS # (AUTO) 16.3 X10'3 (1.8-7.7); NEUTROPHILS % (AUTO) 89.4 % (42-75); PLATELET COUNT 171 X10'3 (140-440); RED BLOOD COUNT 3.87 X10'6 (4.20-5.60); WHITE BLOOD COUNT 18.2 X10'3 (4.5-11.0)
[2023-01-25 07:08] LABS: ALANINE AMINOTRANSFERASE 31 U/L (12-78); ALBUMIN 3.3 G/DL (3.4-5.0); ALBUMIN/GLOBULIN RATIO 1.3 (1.1-1.5); ALKALINE PHOSPHATASE 65 IU/L (46-116); ANION GAP 13 (8-16); ASPARTATE AMINO TRANSFERASE 16 U/L (10-37); BILIRUBIN,TOTAL 0.2 MG/DL (0.1-1.0); BLOOD UREA NITROGEN 13 MG/DL (7-18); BUN/CREATININE RATIO 12.1 (10.0-20.0); CALCIUM 8.8 MG/DL (8.5-10.1); CHLORIDE 108 MMOL/L (99-107); CREATINE KINASE 154 U/L (26-192); CREATININE 1.07 MG/DL (0.40-0.90); GLUCOSE 130 MG/DL (70-104); MAGNESIUM 2.1 MG/DL (1.5-2.4); POTASSIUM 4.3 MMOL/L (3.5-5.1); SODIUM 141 MMOL/L (135-145); TOTAL PROTEIN 5.9 G/DL (6.4-8.2); eGFR 54 ML/MIN
[2023-01-25] MEDS: BUDESONIDE 180 MCG AER.POW.BA INH SCH (07:20)
[2023-01-25 07:53] LABS: RHEUM FACTOR QUAL REFLEX TITER NEGATIVE (Neg)
[2023-01-25] MEDS: pantoprazole 40mg Tablet.DR PO SCH ×2 (08:00→08:10)
[2023-01-25] MEDS: K and/or MAG REPLACEMENT MC SCH ×2 (08:00→19:47)
[2023-01-25] MEDS: methylPREDNISolone sod succ/PF 40mg inj. IV SCH ×2 (08:09→15:40)
[2023-01-25] MEDS: DOXYCYCLINE 100MG CAPSULE PO SCH ×2 (08:09→16:55)
[2023-01-25] MEDS: famotidine 10mg tablet PO SCH (08:09)
[2023-01-25] MEDS: montelukast 10mg tablet PO SCH (08:10)
[2023-01-25] MEDS: docusate sod 100mg capsule PO SCH ×2 (08:10→20:30)
[2023-01-25] MEDS: levoTHYROXINE 125mcg tablet PO SCH (08:10)
[2023-01-25] MEDS: verapamil tablet 120 MG TABLET PO SCH (08:10)
[2023-01-25] MEDS: loratadine 10mg tablet PO SCH (08:10)
[2023-01-25] MEDS: buPROPion SR 150mg tablet PO SCH (08:10)
[2023-01-25] MEDS: heparin, porcine 5000 units/ml vial SQ SCH ×2 (08:15→20:31)
[2023-01-25 08:34] LABS: C-REACTIVE PROTEIN 0.15 MG/DL (0.0-0.5)
[2023-01-25] MEDS ORDERED: benzonatate 100mg capsule PO PRN (11:10)
[2023-01-25] MEDS: magnesium hydroxide 30ml (MOM) UD suspension PO PRN (11:58)
[2023-01-25] MEDS: LORazepam 1 MG tablet PO PRN ×3 (11:58→20:35)
[2023-01-25] MEDS ORDERED: levoFLOXACIN-Levaquin 500mg/D5 100 ML IV ONE (12:45)
[2023-01-25] MEDS: cyclobenzaprine 10mg tablet PO PRN (13:33)
[2023-01-25 15:00] VITALS: BP 111/56
[2023-01-25 15:20] LABS: HBSAG SCREEN Negative (Negative); HEP B CORE AB, TOT Negative (Negative)
[2023-01-25] MEDS: metroNIDAZOLE-Flagyl 500mg/NS 100 ML IV SCH ×2 (15:40→21:00)
[2023-01-25] MEDS: acetaminophen 325mg tablet PO PRN (16:00)
--- NOTE | 2023-01-25 17:06 | NUR ---
patient appears anxious ,given ativan x2 with good result. placed on O2@2L for SOB and O2 sat 91% . RT seeing pt also for nebs. Midline placed via PICC RN Keerthi. Patient up to BR. will continue to monitor
[2023-01-25 18:00] VITALS: BP 118/62
--- NOTE | 2023-01-25 18:40 | NUR ---
Problems reprioritized. Patient report given, questions answered & plan of care reviewed with Eloy SALMERON.
--- NOTE | 2023-01-25 18:45 | NUR ---
Patient in room PCU 3014. I have received report from ROEL SALMERON and had the opportunity to ask questions and assume patient care.
[2023-01-25] MEDS: budesonide 0.5mg/2ml UD nebule IH SCH (19:49)
[2023-01-25] MEDS ORDERED: famotidine 20mg tablet PO SCH (20:00)
[2023-01-25] MEDS: gabapentin 300mg capsule PO SCH (20:29)
[2023-01-25] MEDS: diphenhydrAMINE 25mg capsule PO SCH (20:29)
[2023-01-25 22:00] VITALS: BP 121/61
[2023-01-26] MEDS: methylPREDNISolone sod succ/PF 40mg inj. IV SCH ×4 (00:23→23:29)
[2023-01-26 02:00] VITALS: BP 116/69
[2023-01-26] MEDS: LORazepam 1 MG tablet PO PRN ×4 (03:10→19:01)
[2023-01-26] MEDS: ipratropium/albuterol 3ml nebule NEB SCH ×6 (04:00→23:10)
[2023-01-26] MEDS: metroNIDAZOLE-Flagyl 500mg/NS 100 ML IV SCH ×3 (05:30→20:37)
--- NOTE | 2023-01-26 06:15 | NUR ---
Problems reprioritized. Patient report given, questions answered & plan of care reviewed with TONYA SALMERON.
--- NOTE | 2023-01-26 06:18 | NUR ---
Patient in room PCU 3014. I have received report from FAVIOLA Lyons and had the opportunity to ask questions and assume patient care.
[2023-01-26 07:18] VITALS: BP 125/66
[2023-01-26] MEDS: montelukast 10mg tablet PO SCH (07:28)
[2023-01-26] MEDS: docusate sod 100mg capsule PO SCH ×2 (07:28→19:01)
[2023-01-26] MEDS: loratadine 10mg tablet PO SCH (07:28)
[2023-01-26] MEDS: pantoprazole 40mg Tablet.DR PO SCH (07:28)
[2023-01-26] MEDS: buPROPion SR 150mg tablet PO SCH (07:29)
[2023-01-26] MEDS: levoTHYROXINE 125mcg tablet PO SCH (07:29)
[2023-01-26] MEDS: verapamil tablet 120 MG TABLET PO SCH (07:29)
[2023-01-26] MEDS: magnesium hydroxide 30ml (MOM) UD suspension PO PRN (07:30)
[2023-01-26] MEDS: DOXYCYCLINE 100MG CAPSULE PO SCH ×2 (07:30→17:01)
[2023-01-26 07:48] LABS: BASOPHILS % (AUTO) 0.1 % (0-1); EOSINOPHILS % (AUTO) 0 % (0-6); HEMOGLOBIN 11.7 g/dl (12.0-16.0); LYMPHOCYTES # (AUTO) 0.9 X10'3 (1.1-4.8); LYMPHOCYTES % (AUTO) 7.6 % (21-51); MEAN CORPUSCULAR HEMOGLOBIN 30.3 PG (27.0-31.0); MEAN CORPUSCULAR HGB CONC 32.5 g/dL (33.0-36.5); MEAN CORPUSCULAR VOLUME 93.1 FL (78-98); MEAN PLATELET VOLUME 7.5 FL (7.4-10.4); MONOCYTES # (AUTO) 0.7 X10'3 (0-0.9); MONOCYTES % (AUTO) 5.5 % (2-12); NEUTROPHILS # (AUTO) 10.7 X10'3 (1.8-7.7); NEUTROPHILS % (AUTO) 86.8 % (42-75); PLATELET COUNT 298 X10'3 (140-440); RED BLOOD COUNT 3.87 X10'6 (4.20-5.60); RED CELL DISTRIBUTION WIDTH 13.6 % (11.5-14.5); WHITE BLOOD COUNT 12.3 X10'3 (4.5-11.0)
[2023-01-26 07:57] LABS: ALANINE AMINOTRANSFERASE 36 U/L (12-78); ALBUMIN 3.2 G/DL (3.4-5.0); ALBUMIN/GLOBULIN RATIO 1.2 (1.1-1.5); ALKALINE PHOSPHATASE 60 IU/L (46-116); ANION GAP 12 (8-16); ASPARTATE AMINO TRANSFERASE 19 U/L (10-37); BILIRUBIN,TOTAL 0.2 MG/DL (0.1-1.0); BLOOD UREA NITROGEN 15 MG/DL (7-18); BUN/CREATININE RATIO 14.4 (10.0-20.0); CALCIUM 8.6 MG/DL (8.5-10.1); CHLORIDE 106 MMOL/L (99-107); CREATININE 1.04 MG/DL (0.40-0.90); GLUCOSE 123 MG/DL (70-104); MAGNESIUM 2.4 MG/DL (1.5-2.4); POTASSIUM 4.5 MMOL/L (3.5-5.1); SODIUM 140 MMOL/L (135-145); TOTAL CARBON DIOXIDE 22.5 MMOL/L (24-32); TOTAL PROTEIN 5.9 G/DL (6.4-8.2); eGFR 56 ML/MIN
[2023-01-26] MEDS: K and/or MAG REPLACEMENT MC SCH ×2 (08:00→19:08)
[2023-01-26] MEDS ORDERED: levoFLOXACIN-Levaquin 500mg/D5 100 ML IV SCH (08:00)
[2023-01-26] MEDS: heparin, porcine 5000 units/ml vial SQ SCH ×2 (09:02→19:03)
[2023-01-26] MEDS: budesonide 0.5mg/2ml UD nebule IH SCH ×2 (09:02→19:38)
[2023-01-26 11:45] VITALS: BP 108/59
[2023-01-26 15:59] VITALS: BP 109/63
--- NOTE | 2023-01-26 16:11 | NUR ---
PAGER ID: [phone] MESSAGE: [phone]- Tiki Umaña- pt states feeling congested and asking for an expectorant. - Tomasa [phone]
[2023-01-26 16:26] LABS: ANTI-DSDNA ANTIBODIES <1 IU/mL (0-9); ANTINUCLEAR ANTIBODIES Negative (Negative)
[2023-01-26] MEDS: cyclobenzaprine 10mg tablet PO PRN (16:55)
--- NOTE | 2023-01-26 17:00 | NUR ---
PAGER ID: [phone] MESSAGE: [phone]-Chasidy Tiki= feels congested and tight around lungs. "feels like it's just right there won't come out." pt asking for expectorant. - Tomasa [phone]
[2023-01-26] MEDS: albuterol 2.5 MG/3 ML nebule NEB PRN (17:04)
[2023-01-26 18:00] VITALS: BP 118/66
--- NOTE | 2023-01-26 18:21 | NUR ---
Problems reprioritized. Patient report given, questions answered & plan of care reviewed with FAVIOLA Archer.
--- NOTE | 2023-01-26 18:21 | NUR ---
Received report from primary care nurse Tomasa SALMERON. Assumed patient care with Hemant SALMERON. Patient is awake and alert on room air in no apparent distress. Denies needs at this time. Call light and items of frequent use within reach. Will continue to monitor for changes.
[2023-01-26] MEDS: guaiFENesin ER 600mg tablet PO SCH (19:01)
[2023-01-26] MEDS: gabapentin 300mg capsule PO SCH (19:01)
[2023-01-26] MEDS: diphenhydrAMINE 25mg capsule PO SCH (19:09)
[2023-01-26 22:00] VITALS: BP 106/63
[2023-01-27 02:19] VITALS: BP 113/67
[2023-01-27] MEDS: ipratropium/albuterol 3ml nebule NEB SCH ×6 (02:58→23:38)
[2023-01-27] MEDS: metroNIDAZOLE-Flagyl 500mg/NS 100 ML IV SCH ×2 (04:58→13:48)
--- NOTE | 2023-01-27 06:17 | NUR ---
Problems reprioritized. Patient report given, questions answered & plan of care reviewed with Tomasa SALMERON.
--- NOTE | 2023-01-27 06:26 | NUR ---
Patient in room PCU 3014. I have received report from FAVIOLA Marcos and FAVIOLA Archer and had the opportunity to ask questions and assume patient care.
[2023-01-27 06:47] VITALS: BP 107/71
[2023-01-27 07:06] LABS: BASOPHILS % (AUTO) 0.1 % (0-1); EOSINOPHILS % (AUTO) 0 % (0-6); HEMATOCRIT 38.2 % (35.0-45.0); HEMOGLOBIN 12.1 g/dl (12.0-16.0); LYMPHOCYTES # (AUTO) 1.3 X10'3 (1.1-4.8); LYMPHOCYTES % (AUTO) 11.1 % (21-51); MEAN CORPUSCULAR HEMOGLOBIN 29.7 PG (27.0-31.0); MEAN CORPUSCULAR HGB CONC 31.8 g/dL (33.0-36.5); MEAN CORPUSCULAR VOLUME 93.4 FL (78-98); MEAN PLATELET VOLUME 7.8 FL (7.4-10.4); MONOCYTES # (AUTO) 0.8 X10'3 (0-0.9); MONOCYTES % (AUTO) 6.5 % (2-12); NEUTROPHILS # (AUTO) 9.6 X10'3 (1.8-7.7); NEUTROPHILS % (AUTO) 82.3 % (42-75); PLATELET COUNT 311 X10'3 (140-440); RED BLOOD COUNT 4.09 X10'6 (4.20-5.60); RED CELL DISTRIBUTION WIDTH 13.7 % (11.5-14.5); WHITE BLOOD COUNT 11.7 X10'3 (4.5-11.0)
[2023-01-27 07:20] LABS: ALANINE AMINOTRANSFERASE 47 U/L (12-78); ALBUMIN 3.3 G/DL (3.4-5.0); ALBUMIN/GLOBULIN RATIO 1.2 (1.1-1.5); ALKALINE PHOSPHATASE 62 IU/L (46-116); ANION GAP 10 (8-16); ASPARTATE AMINO TRANSFERASE 20 U/L (10-37); BILIRUBIN,TOTAL 0.3 MG/DL (0.1-1.0); BLOOD UREA NITROGEN 18 MG/DL (7-18); BUN/CREATININE RATIO 15.8 (10.0-20.0); CALCIUM 8.6 MG/DL (8.5-10.1); CHLORIDE 105 MMOL/L (99-107); CREATININE 1.14 MG/DL (0.40-0.90); GLUCOSE 121 MG/DL (70-104); MAGNESIUM 2.5 MG/DL (1.5-2.4); POTASSIUM 4.4 MMOL/L (3.5-5.1); SODIUM 138 MMOL/L (135-145); TOTAL CARBON DIOXIDE 23.5 MMOL/L (24-32); eGFR 50 ML/MIN
[2023-01-27] MEDS: budesonide 0.5mg/2ml UD nebule IH SCH ×2 (07:21→19:44)
[2023-01-27] MEDS ORDERED: famotidine 20mg tablet PO SCH (08:00)
[2023-01-27] MEDS: K and/or MAG REPLACEMENT MC SCH ×2 (08:00→20:00)
[2023-01-27] MEDS: verapamil tablet 120 MG TABLET PO SCH (08:03)
[2023-01-27] MEDS: buPROPion SR 150mg tablet PO SCH (08:03)
[2023-01-27] MEDS: montelukast 10mg tablet PO SCH (08:03)
[2023-01-27] MEDS: loratadine 10mg tablet PO SCH (08:03)
[2023-01-27] MEDS: levoTHYROXINE 125mcg tablet PO SCH (08:03)
[2023-01-27] MEDS: guaiFENesin ER 600mg tablet PO SCH ×2 (08:03→20:35)
[2023-01-27] MEDS: docusate sod 100mg capsule PO SCH ×2 (08:03→20:36)
[2023-01-27] MEDS: levoFLOXACIN-Levaquin 250mg/D5 50 ML IV SCH (08:03)
[2023-01-27] MEDS: DOXYCYCLINE 100MG CAPSULE PO SCH (08:03)
[2023-01-27] MEDS: pantoprazole 40mg Tablet.DR PO SCH (08:04)
[2023-01-27] MEDS: methylPREDNISolone sod succ/PF 40mg inj. IV SCH ×2 (08:04→16:09)
[2023-01-27] MEDS: heparin, porcine 5000 units/ml vial SQ SCH ×2 (08:04→20:35)
[2023-01-27] MEDS: LORazepam 1 MG tablet PO PRN ×4 (08:06→20:35)
[2023-01-27] MEDS: magnesium hydroxide 30ml (MOM) UD suspension PO PRN (08:06)
[2023-01-27 11:30] VITALS: BP 118/73
[2023-01-27 15:11] VITALS: BP 106/57
[2023-01-27 18:00] VITALS: BP 124/70
--- NOTE | 2023-01-27 18:16 | NUR ---
Problems reprioritized. Patient report given, questions answered & plan of care reviewed with Arnulfo Lyons.
--- NOTE | 2023-01-27 18:30 | NUR ---
Patient in room PCU 3014. I have received report from TONYA SALMERON and had the opportunity to ask questions and assume patient care.
[2023-01-27] MEDS: diphenhydrAMINE 25mg capsule PO SCH (20:35)
[2023-01-27] MEDS: gabapentin 300mg capsule PO SCH (20:35)
[2023-01-27 22:00] VITALS: BP 108/71
[2023-01-28] MEDS: methylPREDNISolone sod succ/PF 40mg inj. IV SCH ×2 (00:31→07:08)
[2023-01-28 02:00] VITALS: BP 100/56
[2023-01-28] MEDS: ipratropium/albuterol 3ml nebule NEB SCH ×4 (03:55→15:22)
--- NOTE | 2023-01-28 06:23 | NUR ---
Problems reprioritized. Patient report given, questions answered & plan of care reviewed with TONYA SALMERON.
--- NOTE | 2023-01-28 06:32 | NUR ---
Patient in room PCU 3014. I have received report from FAVIOLA RAMÍREZ and had the opportunity to ask questions and assume patient care.
[2023-01-28 06:56] VITALS: BP 108/69
[2023-01-28 07:05] LABS: BASOPHILS % (AUTO) 0.2 % (0-1); EOSINOPHILS % (AUTO) 0 % (0-6); HEMATOCRIT 38.9 % (35.0-45.0); HEMOGLOBIN 12.9 g/dl (12.0-16.0); LYMPHOCYTES # (AUTO) 1.5 X10'3 (1.1-4.8); LYMPHOCYTES % (AUTO) 12.3 % (21-51); MEAN CORPUSCULAR HEMOGLOBIN 30.8 PG (27.0-31.0); MEAN CORPUSCULAR HGB CONC 33.1 g/dL (33.0-36.5); MEAN PLATELET VOLUME 7.6 FL (7.4-10.4); MONOCYTES # (AUTO) 0.8 X10'3 (0-0.9); MONOCYTES % (AUTO) 6.7 % (2-12); NEUTROPHILS # (AUTO) 9.8 X10'3 (1.8-7.7); NEUTROPHILS % (AUTO) 80.8 % (42-75); PLATELET COUNT 305 X10'3 (140-440); RED BLOOD COUNT 4.18 X10'6 (4.20-5.60); RED CELL DISTRIBUTION WIDTH 13.8 % (11.5-14.5); WHITE BLOOD COUNT 12.2 X10'3 (4.5-11.0)
[2023-01-28] MEDS: montelukast 10mg tablet PO SCH (07:07)
[2023-01-28] MEDS: docusate sod 100mg capsule PO SCH (07:07)
[2023-01-28] MEDS: loratadine 10mg tablet PO SCH (07:07)
[2023-01-28] MEDS: levoFLOXACIN-Levaquin 250mg/D5 50 ML IV SCH (07:07)
[2023-01-28] MEDS: verapamil tablet 120 MG TABLET PO SCH (07:08)
[2023-01-28] MEDS: buPROPion SR 150mg tablet PO SCH (07:08)
[2023-01-28] MEDS: pantoprazole 40mg Tablet.DR PO SCH (07:08)
[2023-01-28] MEDS: guaiFENesin ER 600mg tablet PO SCH (07:08)
[2023-01-28 07:14] LABS: ALANINE AMINOTRANSFERASE 46 U/L (12-78); ALBUMIN 3.3 G/DL (3.4-5.0); ALBUMIN/GLOBULIN RATIO 1.1 (1.1-1.5); ALKALINE PHOSPHATASE 60 IU/L (46-116); ANION GAP 12 (8-16); ASPARTATE AMINO TRANSFERASE 19 U/L (10-37); BILIRUBIN,TOTAL 0.2 MG/DL (0.1-1.0); BLOOD UREA NITROGEN 20 MG/DL (7-18); BUN/CREATININE RATIO 17.4 (10.0-20.0); CALCIUM 8.8 MG/DL (8.5-10.1); CHLORIDE 103 MMOL/L (99-107); CREATININE 1.15 MG/DL (0.40-0.90); GLUCOSE 124 MG/DL (70-104); POTASSIUM 4.7 MMOL/L (3.5-5.1); SODIUM 138 MMOL/L (135-145); TOTAL CARBON DIOXIDE 22.6 MMOL/L (24-32); TOTAL PROTEIN 6.2 G/DL (6.4-8.2); eGFR 50 ML/MIN
[2023-01-28] MEDS: budesonide 0.5mg/2ml UD nebule IH SCH (07:38)
[2023-01-28] MEDS: K and/or MAG REPLACEMENT MC SCH (08:00)
[2023-01-28] MEDS: levoTHYROXINE 125mcg tablet PO SCH (08:02)
[2023-01-28] MEDS: heparin, porcine 5000 units/ml vial SQ SCH (08:02)
--- NOTE | 2023-01-28 10:51 | NUR ---
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 Called to 3 pharmacies to find name and dose of meds but no records pass 18 months.- Tomasa [phone]
[2023-01-28] MEDS: acetaminophen 325mg tablet PO PRN (10:56)
[2023-01-28 11:19] VITALS: BP 120/73
[2023-01-28] MEDS: albuterol 2.5 MG/3 ML nebule NEB PRN (11:29)
--- NOTE | 2023-01-28 13:02 | NUR ---
Initial: Pt admit for asthma exacerbation. Currently on a regular diet and overall eating poorly with documented average 47% PO intake since admit. Pt seen at bedside, reports appetite has been low since admit and reports low PO intake also secondary to difficulty swallowing with asthma. Food preferences were obtained and d/w dietary, see below. Pt states she was intubated two years ago and since then she has been having difficulty swallowing mostly food though also occasionally liquids. Pt agrees to BSS with ST and soft to chew ground foods pending BSS, d/w dietary. Pt states she has not seen an ST in the past or followed any texture modified diet. Noted pt with a banana allergy in EMR, pt also reports food allergy to sesame seeds and peanuts, EMR updated and d/w dietary. Pt provided with RD contact information and encouraged to reach out. Information obtained from pt was d/w bedside RN. Will continue to follow. Recommendations: 1) Continue regular diet; soft to chew grind all pending BSS with ST 2) [place] food preferences: yogurt WB, strawberry smoothie WL, mashed potatoes BIDLD, cottage cheese WS; no scrambled eggs 3) Routine bowel care 4) Weekly scaled weights Addendum: 01/28/23 at [address] Amended: Links added.
[2023-01-28] MEDS: LORazepam 1 MG tablet PO PRN (13:32)
[2023-01-28 15:04] VITALS: BP 131/76
[2023-01-28] MEDS ORDERED: THEO200C4 PO (15:31)
[2023-01-28] MEDS ORDERED: MONT-40 PO (15:31)
--- NOTE | 2023-01-28 16:15 | NUR ---
Patient alert and oriented in no apparent acute distress. Patient states "I don't feel any better than when I came in." Dr. Nunez was in to speak to patient and patient agreeable to DC. Discussed with patient discharge instructions and new prescriptions. Patient stated that her albuterol was running low and asked if could order refills. Dr. Nunez notified and stated will order refills. Patient verbalized understanding of dc teaching and meds. Patient dc'd with all personal belongings including home meds that were stored in pharmacy. Patient escorted out in wheelchair accompanied by x1 staff and daughter.
== END 2023-01-28 16:56 | disposition home or self-care (01) | DRG 141 ==
LOC: ER 14:49 → ED HOLD 19:31 → PCU 3S 21:04
PROVIDERS: ADMIT Internal Medicine; ATTEND Family Medicine
PROC: B32T1ZZ Computerized Tomography (CT Scan) of Left Pulmonary Artery using Low Osmolar Contrast (ICD-10-PCS; principal; 2023-01-24)
PROC: B3201ZZ Computerized Tomography (CT Scan) of Thoracic Aorta using Low Osmolar Contrast (ICD-10-PCS; 2023-01-24)
PROC: B32S1ZZ Computerized Tomography (CT Scan) of Right Pulmonary Artery using Low Osmolar Contrast (ICD-10-PCS; 2023-01-24)
DX: J45.41 Moderate persistent asthma with (acute) exacerbation (principal); N17.9 Acute kidney failure, unspecified; R65.10 Systemic inflammatory response syndrome (SIRS) of non-infectious origin without acute organ dysfunction; E03.9 Hypothyroidism, unspecified; E86.9 Volume depletion, unspecified; I48.0 Paroxysmal atrial fibrillation; Z20.822 Contact with and (suspected) exposure to COVID-19; E11.9 Type 2 diabetes mellitus without complications; F32.A Depression, unspecified; K21.9 Gastro-esophageal reflux disease without esophagitis; R21 Rash and other nonspecific skin eruption; I25.10 Atherosclerotic heart disease of native coronary artery without angina pectoris; I25.2 Old myocardial infarction; Z79.51 Long term (current) use of inhaled steroids; Z79.84 Long term (current) use of oral hypoglycemic drugs; Z88.0 Allergy status to penicillin; Z88.5 Allergy status to narcotic agent; Z90.49 Acquired absence of other specified parts of digestive tract; Z79.899 Other long term (current) drug therapy; Z79.890 Hormone replacement therapy
CPT/HCPCS: 36410; 36415; 36600; 71045; 71275; 76942; 80053; 82550; 82803; 83735; 84443; 84484; 85018; 85025; 85651; 86038; 86140; 86430; 86704; 86705; 86706; 87070; 87340; 87811; 93306; 94640; 94664; 94668; 94760; 99285; A4333; A4615; A6258; A7015; C1751; G0378; J1644; J1956; J2060; J2920; J2930; J3475; J3490; J7030; J7040; Q0163; Q9967

== ENCOUNTER 2023-10-12 14:34 | Emergency (ER) | payer MEDICAID ==
[~2023-10-12] VITALS: Ht 154.9 cm; Wt 73.3 kg
[~2023-10-12 14:34] MED LIST changes: +ALBU6.7H14 INH; +BUDE180A INH; +MONT-40 PO; +PIRO20CA2 PO; +THEO200C4 PO; +VERA120T19 PO
[2023-10-12 14:40] VITALS: TEMP 98.2
[2023-10-12 15:15] LABS: BILIRUBIN,URINE NEGATIVE (Neg); CLARITY,URINE CLEAR (Clear); COLOR,URINE STRAW (Yellow); GLUCOSE, URINE NEGATIVE (Neg); KETONES,URINE NEGATIVE (Neg); LEUKOCYTE ESTERASE ,URINE NEGATIVE (Neg); NITRITES, URINE NEGATIVE (Neg); OCCULT BLOOD,URINE NEGATIVE (Neg); PROTEIN,URINE NEGATIVE (Neg); UROBILINOGEN,URINE 0.2 E.U/dL (0.2-1.0)
[2023-10-12 15:16] LABS: UA COLLECTION TYPE CLN CATCH MIDSTREAM; URINE HCG NEGATIVE (NEG)
[2023-10-12 15:37] LABS: BASOPHILS % (AUTO) 0.3 % (0-1); EOSINOPHILS # (AUTO) 0.2 X10'3 (0-0.9); EOSINOPHILS % (AUTO) 2.7 % (0-6); HEMATOCRIT 38.6 % (35.0-45.0); HEMOGLOBIN 12.9 g/dl (12.0-16.0); LYMPHOCYTES # (AUTO) 1.7 X10'3 (1.1-4.8); LYMPHOCYTES % (AUTO) 26.8 % (21-51); MEAN CORPUSCULAR HEMOGLOBIN 31.1 PG (27.0-31.0); MEAN CORPUSCULAR HGB CONC 33.4 g/dL (33.0-36.5); MEAN PLATELET VOLUME 7.6 FL (7.4-10.4); MONOCYTES # (AUTO) 0.7 X10'3 (0-0.9); MONOCYTES % (AUTO) 11.7 % (2-12); NEUTROPHILS # (AUTO) 3.6 X10'3 (1.8-7.7); NEUTROPHILS % (AUTO) 58.5 % (42-75); PLATELET COUNT 358 X10'3 (140-440); RED BLOOD COUNT 4.15 X10'6 (4.20-5.60); RED CELL DISTRIBUTION WIDTH 13.1 % (11.5-14.5); WHITE BLOOD COUNT 6.2 X10'3 (4.5-11.0)
[2023-10-12 15:50] LABS: ALANINE AMINOTRANSFERASE 29 U/L (12-78); ALBUMIN 3.5 G/DL (3.4-5.0); ALBUMIN/GLOBULIN RATIO 1.2 (1.1-1.5); ALKALINE PHOSPHATASE 70 IU/L (46-116); ANION GAP 7 (8-16); ASPARTATE AMINO TRANSFERASE 21 U/L (10-37); BILIRUBIN,TOTAL 0.2 MG/DL (0.1-1.0); BLOOD UREA NITROGEN 16 MG/DL (7-18); BUN/CREATININE RATIO 14.7 (10.0-20.0); CALCIUM 8.6 MG/DL (8.5-10.1); CHLORIDE 107 MMOL/L (99-107); CREATININE 1.09 MG/DL (0.40-0.90); GLUCOSE 108 MG/DL (70-104); SODIUM 142 MMOL/L (135-145); TOTAL CARBON DIOXIDE 27.6 MMOL/L (24-32); TOTAL PROTEIN 6.5 G/DL (6.4-8.2); eCRCL 46 ML/MIN; eGFR 53 ML/MIN
[2023-10-12] MEDS ORDERED: MEDR10TA10 PO (16:54)
[2023-10-12] MEDS ORDERED: HYDR-3965 PO (16:54)
[2023-10-12 17:16] VITALS: BP 144/72; PULSE 81; RESP 16; O2SAT 99
== END 2023-10-12 17:20 | disposition home or self-care (01) ==
LOC: ER 14:35
DX: N93.9 Abnormal uterine and vaginal bleeding, unspecified (principal); D25.9 Leiomyoma of uterus, unspecified; M54.50 Low back pain, unspecified; J45.909 Unspecified asthma, uncomplicated; E03.9 Hypothyroidism, unspecified; Z91.018 Allergy to other foods; Z88.0 Allergy status to penicillin; Z88.5 Allergy status to narcotic agent; Z91.010 Allergy to peanuts; Z79.899 Other long term (current) drug therapy; Z90.49 Acquired absence of other specified parts of digestive tract
CPT/HCPCS: 36415; 76830; 76856; 80053; 81003; 81025; 85025; 85610; 93976; 99284

== ENCOUNTER 2024-01-24 18:14 | Emergency (ER) | payer MEDICAID ==
[~2024-01-24] VITALS: Ht 154.9 cm; Wt 68.2 kg
[~2024-01-24 18:14] MED LIST changes: +HYDR-3965 PO; +MEDR10TA10 PO
[2024-01-24 19:23] LABS: ALBUMIN 4.1 G/DL (3.4-5.0); ANION GAP 13 (8-16); BLOOD UREA NITROGEN 17 MG/DL (7-18); BUN/CREATININE RATIO 15.2 (10.0-20.0); CALCIUM 9.2 MG/DL (8.5-10.1); CHLORIDE 104 MMOL/L (99-107); CREATININE 1.12 MG/DL (0.40-0.90); ETHANOL < 10 MG/DL (<10); GLUCOSE 86 MG/DL (70-104); POTASSIUM 3.9 MMOL/L (3.5-5.1); SODIUM 139 MMOL/L (135-145); TOTAL CARBON DIOXIDE 21.7 MMOL/L (24-32); eCRCL 44 ML/MIN; eGFR 51 ML/MIN
[2024-01-24 19:24] LABS: BASOPHILS % (AUTO) 0.2 % (0-1); EOSINOPHILS % (AUTO) 0.3 % (0-6); HEMATOCRIT 39.3 % (35.0-45.0); HEMOGLOBIN 13.2 g/dl (12.0-16.0); LYMPHOCYTES # (AUTO) 1.5 X10'3 (1.1-4.8); LYMPHOCYTES % (AUTO) 19.2 % (21-51); MEAN CORPUSCULAR HGB CONC 33.5 g/dL (33.0-36.5); MEAN CORPUSCULAR VOLUME 92.7 FL (78-98); MEAN PLATELET VOLUME 7.8 FL (7.4-10.4); MONOCYTES # (AUTO) 0.7 X10'3 (0-0.9); MONOCYTES % (AUTO) 9.3 % (2-12); NEUTROPHILS # (AUTO) 5.7 X10'3 (1.8-7.7); PLATELET COUNT 376 X10'3 (140-440); RED BLOOD COUNT 4.24 X10'6 (4.20-5.60); RED CELL DISTRIBUTION WIDTH 13.2 % (11.5-14.5)
[2024-01-24] MEDS: LORazepam 1 MG tablet PO ONE (19:55)
[2024-01-24] MEDS: diphenhydrAMINE 25mg capsule PO ONE (19:55)
[2024-01-24 20:19] LABS: BILIRUBIN,URINE NEGATIVE (Neg); CLARITY,URINE CLEAR (Clear); COLOR,URINE YELLOW (Yellow); GLUCOSE, URINE NEGATIVE (Neg); KETONES,URINE 15 mg/dl (Neg); LEUKOCYTE ESTERASE ,URINE NEGATIVE (Neg); NITRITES, URINE NEGATIVE (Neg); OCCULT BLOOD,URINE TRACE-INTACT (Neg); PROTEIN,URINE NEGATIVE (Neg); UROBILINOGEN,URINE 0.2 E.U/dL (0.2-1.0)
[2024-01-24 20:20] LABS: URINE AMPHETAMINE SCREEN NEGATIVE (Neg); URINE BARBITUATE SCREEN NEGATIVE (Neg); URINE BENZODIAZEPINES SCREEN NEGATIVE (Neg); URINE CANNABINOID SCREEN NEGATIVE (Neg); URINE COCAINE SCREEN NEGATIVE (Neg); URINE METHADONE SCREEN NEGATIVE (Neg); URINE OPIATE SCREEN NEGATIVE (Neg); URINE PHENCYCLIDINE SCREEN NEGATIVE (Neg)
[2024-01-24 20:29] LABS: UA COLLECTION TYPE CLN CATCH MIDSTREAM
[2024-01-24 20:49] LABS: MUCUS STRANDS NONE SEEN /LPF (Neg); SQUAMOUS EPITHELIAL CELL,UR MODERATE /LPF (FEW)
[2024-01-24 20:50] LABS: BACTERIA,URINE FEW /HPF (Neg); RBC,URINE 0-2 /HPF (0-2); WBC,URINE 0-4 /HPF (0-4)
[2024-01-24] MEDS: ziprasidone 20mg capsule PO ONE (21:20)
[2024-01-24] MEDS: acetaminophen 325mg tablet PO ONE (21:55)
[2024-01-25] MEDS: Melatonin 3mg tablet PO ONE (01:58)
[2024-01-25] MEDS: LORazepam 1 MG tablet PO ONE (02:24)
[2024-01-25] MEDS: ALPRAZolam 0.5mg tablet PO ONE (08:47)
[2024-01-25] MEDS: acetaminophen 325mg tablet PO ONE (09:09)
[2024-01-25] MEDS ORDERED: ALPRAZolam 0.25mg tablet PO PRN (12:20)
[2024-01-25] MEDS: ALPRAZolam 0.5mg tablet PO PRN (13:31)
[2024-01-25] MEDS: acetaminophen 325mg tablet PO PRN (13:42)
[2024-01-25] MEDS ORDERED: HYDR-3686 PO (15:43)
[2024-01-25] MEDS: hydrOXYzine 25 MG tablet PO ONE (16:16)
[2024-01-25 16:36] VITALS: BP 116/73; PULSE 93; RESP 16; TEMP 97.6; O2SAT 98
== END 2024-01-25 16:49 | disposition home or self-care (01) ==
LOC: ER 18:15
DX: R45.851 Suicidal ideations (principal); Z20.822 Contact with and (suspected) exposure to COVID-19; I25.10 Atherosclerotic heart disease of native coronary artery without angina pectoris; J45.909 Unspecified asthma, uncomplicated; E03.9 Hypothyroidism, unspecified; Z91.018 Allergy to other foods; Z88.0 Allergy status to penicillin; Z88.5 Allergy status to narcotic agent; Z91.010 Allergy to peanuts; Z79.899 Other long term (current) drug therapy; Z79.84 Long term (current) use of oral hypoglycemic drugs; Z90.49 Acquired absence of other specified parts of digestive tract
CPT/HCPCS: 36415; 80048; 80305; 80320; 81001; 85025; 87811; 99285; Q0163; Q0177

== ENCOUNTER 2024-02-27 19:06 | Emergency (ER) | payer MEDICAID ==
[~2024-02-27] VITALS: Ht 154.9 cm; Wt 70.2 kg
[~2024-02-27 19:06] MED LIST changes: +HYDR-3686 PO
[2024-02-27] MEDS: ipratropium/albuterol 3ml nebule NEB STA (19:28)
[2024-02-27 19:29] VITALS: PULSE 108; RESP 17; O2SAT 98
[2024-02-27 19:35] VITALS: PULSE 107; RESP 17
[2024-02-27] MEDS: LORazepam 1 MG tablet PO ONE (20:18)
[2024-02-27 20:40] LABS: BASOPHILS % (AUTO) 0.3 % (0-1); EOSINOPHILS % (AUTO) 0.2 % (0-6); HEMATOCRIT 36.3 % (35.0-45.0); HEMOGLOBIN 12.2 g/dl (12.0-16.0); LYMPHOCYTES # (AUTO) 0.4 X10'3 (1.1-4.8); LYMPHOCYTES % (AUTO) 7.3 % (21-51); MEAN CORPUSCULAR HGB CONC 33.5 g/dL (33.0-36.5); MEAN CORPUSCULAR VOLUME 92.6 FL (78-98); MEAN PLATELET VOLUME 7.4 FL (7.4-10.4); MONOCYTES # (AUTO) 0.3 X10'3 (0-0.9); MONOCYTES % (AUTO) 4.6 % (2-12); NEUTROPHILS # (AUTO) 5.3 X10'3 (1.8-7.7); NEUTROPHILS % (AUTO) 87.6 % (42-75); PLATELET COUNT 324 X10'3 (140-440); RED BLOOD COUNT 3.93 X10'6 (4.20-5.60); RED CELL DISTRIBUTION WIDTH 13.7 % (11.5-14.5); WHITE BLOOD COUNT 6.1 X10'3 (4.5-11.0)
[2024-02-27 21:02] LABS: ANION GAP 14 (8-16); BLOOD UREA NITROGEN 14 MG/DL (7-18); BUN/CREATININE RATIO 11.8 (10.0-20.0); CALCIUM 9.3 MG/DL (8.5-10.1); CHLORIDE 103 MMOL/L (99-107); CREATININE 1.19 MG/DL (0.40-0.90); GLUCOSE 110 MG/DL (70-104); POTASSIUM 3.4 MMOL/L (3.5-5.1); PRO BRAIN NATRIURETIC PEPTIDE 255 PG/ML (0-125); SODIUM 140 MMOL/L (135-145); TOTAL CARBON DIOXIDE 22.8 MMOL/L (24-32); eCRCL 42 ML/MIN; eGFR 48 ML/MIN
[2024-02-27] MEDS ORDERED: iohexol 350MG/ML 100ml bottle IV ONE (21:25)
[2024-02-27] MEDS: LORazepam 2 mg/ml vial IV ONE (22:23)
[2024-02-27] MEDS ORDERED: HYDR-3686 PO (23:15)
[2024-02-27 23:47] VITALS: BP 113/66; PULSE 91; RESP 16; TEMP 98.2; O2SAT 94
== END 2024-02-28 00:10 | disposition home or self-care (01) ==
LOC: ER 19:07
DX: J45.909 Unspecified asthma, uncomplicated (principal); F41.9 Anxiety disorder, unspecified; I48.91 Unspecified atrial fibrillation; I25.10 Atherosclerotic heart disease of native coronary artery without angina pectoris; E03.9 Hypothyroidism, unspecified; Z91.018 Allergy to other foods; Z88.0 Allergy status to penicillin; Z88.5 Allergy status to narcotic agent; Z91.010 Allergy to peanuts; Z79.899 Other long term (current) drug therapy; Z79.2 Long term (current) use of antibiotics; Z90.49 Acquired absence of other specified parts of digestive tract
CPT/HCPCS: 36415; 71045; 71275; 80048; 83880; 84484; 85025; 93005; 94640; 96374; 99285; J2060; Q9967; 94760

== ENCOUNTER 2024-11-14 09:01 | Emergency (ER) | payer MEDICAID ==
[~2024-11-14] VITALS: Ht 154.9 cm; Wt 56.2 kg
[~2024-11-14 09:01] MED LIST changes: -BUDE180A INH; +BUDE180A5 INH
[2024-11-14 10:38] LABS: BASOPHILS % (AUTO) 0.8 % (0-1); EOSINOPHILS # (AUTO) 0.1 X10'3 (0-0.9); EOSINOPHILS % (AUTO) 1.4 % (0-6); HEMATOCRIT 38.7 % (35.0-45.0); HEMOGLOBIN 13.1 g/dl (12.0-16.0); LYMPHOCYTES # (AUTO) 1.6 X10'3 (1.1-4.8); LYMPHOCYTES % (AUTO) 35.5 % (21-51); MEAN CORPUSCULAR HEMOGLOBIN 31.3 PG (27.0-31.0); MEAN PLATELET VOLUME 7.2 FL (7.4-10.4); MONOCYTES # (AUTO) 0.5 X10'3 (0-0.9); MONOCYTES % (AUTO) 11.2 % (2-12); NEUTROPHILS # (AUTO) 2.3 X10'3 (1.8-7.7); NEUTROPHILS % (AUTO) 51.1 % (42-75); PLATELET COUNT 333 X10'3 (140-440); RED CELL DISTRIBUTION WIDTH 14.1 % (11.5-14.5); WHITE BLOOD COUNT 4.5 X10'3 (4.5-11.0)
[2024-11-14 10:57] LABS: ANION GAP 7 (8-16); BLOOD UREA NITROGEN 13 MG/DL (7-18); CALCIUM 8.8 MG/DL (8.5-10.1); CHLORIDE 107 MMOL/L (99-107); GLUCOSE 77 MG/DL (70-104); LACTATE DEHYDROGENASE 176 U/L (81-234); LIPASE 23 U/L (16-77); POTASSIUM 4.3 MMOL/L (3.5-5.1); PRO BRAIN NATRIURETIC PEPTIDE 31 PG/ML (0-125); SODIUM 140 MMOL/L (135-145); eCRCL 49 ML/MIN; eGFR 58 ML/MIN
[2024-11-14] MEDS: aspirin 81mg tab.chew PO ONE (11:03)
[2024-11-14] MEDS: ondansetron/PF 4mg/2ml inj IV STA (11:29)
[2024-11-14] MEDS: acetaminophen 1,000mg/100ml IV 100 ML IV STA (11:30)
[2024-11-14] MEDS: LORazepam 2 mg/ml vial IV STA (11:30)
[2024-11-14] MEDS: normal saline 1000ml 1,000 ML IV ONE (11:50)
[2024-11-14] MEDS: ketorolac trometh 15mg/ml vial 15 MG/ML ML IV STA (11:50)
[2024-11-14 13:35] VITALS: TEMP 98
[2024-11-14] MEDS: OLANZapine **IM** 10 mg inj. IM STA (14:31)
[2024-11-14] MEDS: proCHLORperazine 10 MG/2 ml inj IV STA (14:45)
[2024-11-14] MEDS: OLANZapine 2.5MG tablet PO STA (14:47)
[2024-11-14 14:59] LABS: BILIRUBIN,URINE NEGATIVE (Neg); CLARITY,URINE CLEAR (Clear); COLOR,URINE YELLOW (Yellow); GLUCOSE, URINE NEGATIVE (Neg); KETONES,URINE NEGATIVE (Neg); LEUKOCYTE ESTERASE ,URINE NEGATIVE (Neg); NITRITES, URINE POSITIVE (Neg); OCCULT BLOOD,URINE NEGATIVE (Neg); PROTEIN,URINE NEGATIVE (Neg); UROBILINOGEN,URINE 0.2 E.U/dL (0.2-1.0)
[2024-11-14 15:05] LABS: UA COLLECTION TYPE CLN CATCH MIDSTREAM
[2024-11-14 15:07] LABS: AMORPHOUS PHOSPHATES 1+; BACTERIA,URINE 3+ /HPF (Neg); RBC,URINE 0-2 /HPF (0-2); SQUAMOUS EPITHELIAL CELL,UR FEW /LPF (FEW); WBC,URINE 0-4 /HPF (0-4)
[2024-11-14 16:35] VITALS: BP 102/56; PULSE 84; RESP 16; O2SAT 98
== END 2024-11-14 16:58 | disposition home or self-care (01) ==
LOC: ER 09:01
DX: R07.89 Other chest pain (principal); F41.9 Anxiety disorder, unspecified; E03.9 Hypothyroidism, unspecified; I25.10 Atherosclerotic heart disease of native coronary artery without angina pectoris; I25.2 Old myocardial infarction; I48.91 Unspecified atrial fibrillation; J45.909 Unspecified asthma, uncomplicated; Z88.0 Allergy status to penicillin; Z88.5 Allergy status to narcotic agent; Z90.49 Acquired absence of other specified parts of digestive tract; Z91.010 Allergy to peanuts; Z91.018 Allergy to other foods; Z79.899 Other long term (current) drug therapy
CPT/HCPCS: 36415; 71045; 80048; 81001; 83615; 83690; 83880; 84484; 85025; 87088; 93005; 96365; 96366; 96375; 99285; J0131; J0780; J1885; J2060; J2405; J7030

== ENCOUNTER 2025-06-10 10:27 | Emergency (ER) | payer MEDICAID ==
[~2025-06-10] VITALS: Ht 154.9 cm; Wt 60.8 kg
--- NOTE | 2025-06-10 11:34 | ELECTROCARDIOGRAPH REPORT ---
[facility] Test Date: 2025-06-10 Test Time: 11:29:16 Pat Name: KASSIE MONSALVE Department: [facility] Patient ID: [id number] Room: Gender: F Cover Seamer: : 1970 Requested By: SARINA PATEL Order Number: [id number] Reading MD: Dr. Russ Rae Measurements Intervals [place] Rate: 81 P: 88 CA: 138 QRS: 37 QRSD: 93 T: 60 QT: 399 QTc: 464 Interpretive Statements Sinus rhythm Probable anteroseptal infarct, old Baseline wander in lead(s) I,II,III,aVL,aVF,V3 Electronically Signed On 06-10-2025 20:42:[address] Russ Rae Please click the below link to view image of tracing.
[2025-06-10 11:35] LABS: MEAN PLATELET VOLUME 8.1 FL (7.4-10.4); RED CELL DISTRIBUTION WIDTH 12.5 % (11.5-14.5)
[2025-06-10 11:55] LABS: CREATININE 0.75 MG/DL (0.40-0.90); TOTAL CARBON DIOXIDE 25.3 MMOL/L (24-32); eCRCL 65 ML/MIN; eGFR 81 ML/MIN
--- NOTE | 2025-06-10 11:55 | Physician Documentation ---
History of Present Illness ~ General Chief Complaint: Abdominal Pain w/vomiting Stated Complaint: ABD PAIN Time Seen by MD: 11:06 Primary Medical Doctor: [facility] Mode of Arrival: Ambulatory History of Present Illness Initial Comments A 54-year-old woman with a medical history that includes COPD, asthma, AFib, pericardial effusion, angioedema, and hypothyroidism presented to the emergency department today after feeling unwell for one week, following a visit to her primary care physician at the [facility]. The patient reports experiencing nausea and vomiting, accompanied by right flank pain that radiates to the right groin over the past week. She states that she has had three episodes of vomiting each day and has been unable to tolerate any oral intake. Additionally, even water induces nausea. The patient also reports a strong urge to urinate but experiences difficulty and has to strain to do so. She denies any hematuria but has experienced episodes of burning during urination. Over the past week, she has had episodes of fever reaching 102 F, which she managed with Tylenol at [facility]. The pain in her lower abdomen and right flank is rated at 6 out of 10 in intensity. According to her medical records, she has a documented history of AFib but has never been anticoagulated, likely due to her Wilfrid Vasc score being 1. She has a significant history of COPD and asthma, for which she uses albuterol and Trelegy inhalers at home. Additionally, she underwent a recent hysterectomy due to massive uterine bleeding. Date: Jun 10, 2025 Time: 15:04 Additional note by Luis Miguel Vann DO: I took over the care of this patient from previous physician. I reviewed any previous notes available, obtain my own history, review of systems and physical examination was performed by myself. I have discussed the case with the patient and the resident. The patient confirms that she has been experiencing right upper quadrant abdominal pain for several months, got worse over the last week. It is accompanied by nausea and vomiting. She did reports fever with a T-max of 102. This has not happened in the past. She is status post cholecystectomy in 2004. [id number] medications are not helping. Medication Reconciliation Allergies: Coded Allergies: banana (Verified Allergy, Intermediate, 06/10/25) tongue and throat swell Penicillins (Unverified Allergy, Unknown, 06/10/25) codeine (Unverified Allergy, Unknown, 06/10/25) peanut (Unverified Allergy, Unknown, 06/10/25) sesame seed (Unverified Allergy, Unknown, 06/10/25) Scheduled Albuterol Sulfate (Proventil Hfa), 2 PUFFS INH Q6H Budesonide (Pulmicort Flexhaler), 2 PUFFS INH Q12H Budesonide/Formoterol Fumarate (Symbicort 160-4.5 Mcg Inhaler), 1 PUFFS INH Q12H, (Reported) Bupropion HCl (Bupropion HCl Sr), 1 TAB PO DAILY, (Reported) Diphenhydramine Hcl (Benadryl), 2 CAP PO HS, (Reported) Epinephrine (Epipen 2-Remy), 1 SYR IM ONCE Famotidine (Famotidine), 1 TAB MT BID Gabapentin (Neurontin), 300 MG PO QPM, (Reported) Hydroxyzine Hcl (Atarax), 2 TAB PO Q12H Levothyroxine Sodium (Synthroid), 1 TAB PO DAILY, (Reported) Loratadine (Loratadine), 1 TAB PO DAILY, (Reported) Medroxyprogesterone Acet (Medroxyprogesterone Acetate), 1 TAB PO DAILY Metformin HCl (Metformin HCl), 1 TAB PO DAILY, (Reported) Montelukast Sodium (Montelukast Sodium), 10 MG PO DAILY Pantoprazole Sodium (Pantoprazole Sodium), 1 TAB PO DAILY, (Reported) Piroxicam (Piroxicam), 1 CAP PO DAILY, (Reported) Theophylline Anhydrous (Himanshu-24), 1 CAP PO DAILY Verapamil Hcl* (Verapamil Hcl*), 120 MG PO DAILY, (Reported) Scheduled PRN Albuterol Sulfate (Albuterol Sulfate), 1 VIAL NEB Q6H PRN for SOB or wheezing, (Reported) Cyclobenzaprine* (Cyclobenzaprine*), 1 TAB PO BID PRN for muscle spasms, (Reported) Hydrocodone Bit/Acetaminophen 5/325 MG (Westby 5/325 MG), 1 TAB PO Q6H PRN for pain Past Medical History Past Medical History: Atrial Fibrillation, Coronary Artery Disease, Myocardial Infarction, Asthma, Previously Intubated, Hypothyroidism Other Past Medical History: Angioedema Past Surgical History: cholecystectomy Other Past Surgical History: Hysterectomy Other Past Family History: Both parents had heart attacks. Smoking Status: Never smoker Alcohol Use: None Drug Use: none Lives In: Home Review of Systems ROS Constitutional: Reports fever, chills, but denies dizziness, weight gain or loss Eyes: No pain, erythema, discharge, blurring of vision ENT: No sore throat, epistaxis, tinnitus Cardiovascular: No Shortness of breath. Chest pressure, chest discomfort, palpitations, syncope, lower extremity edema, paroxysmal nocturnal dyspnea Respiratory: No Shortness of breath and cough present, No hemoptysis Gastrointestinal: Reports nausea, vomiting; No diarrhea, constipation, hematemesis, abdominal pain, bloating, melena or fresh blood Reports right flank pain Integumentary: No change in skin, hair, nails. No swelling, bruising, abrasions Neurologic: No headache, neck pain, numbness or tingling of the extremities, weakness Psychiatric: No delusions, depression, loss of interest in normal activity or change in sleep pattern, hallucinations, suicidal ideations Endocrine: No fatigue, weakness, polydipsia, polyuria, change in appetite, heat or cold intolerance, sweating, dry skin Hematological: No bleeding, petechiae, bruising Allergies: No asthma or urticaria Physical Exam Physical Exam Vital Signs: Temperature: 99.0, Source: Temporal, Heart Rate: 89, Respiratory Rate: 18, BP: 118/56, Pulse Oximetry: 100, Weight: 60.800 Oxygen Flow Rate: 0 Physical Exam GENERAL: Awake, alert, oriented, GCS 15, no apparent distress, non-toxic appearing, answers questions, follows commands appropriately. Examined in bed 7. HEENT: Atraumatic, normocephalic, pupils equal, extraocular muscles intact, sclerae anicteric, mucus membranes moist, oropharynx is clear, no stridor. NECK: supple, full active range of motion, trachea midline, no thyromegaly, no lymphadenopathy, no JVD. CARDIOVASCULAR: regular rate/rhythm, no murmurs/gallops/rubs, Pulses are 2+ in all extremities and symmetric. Capillary refill less than 2 seconds. PULMONARY: Nonlabored, good air movement ,no respiratory distress, speaking in full sentences, clear to auscultation bilaterally, no wheezing, no ronchi, no rales, no accessory muscle use. GASTROINTESTINAL: Soft, right upper quadrant tenderness to palpation reproducing chief complaint, non-distended, normal active bowel sounds, no organomegaly, no pulsatile masses, no CVA tenderness. NEUROLOGIC: Lucid with normal mental status. Normal facial symmetry. Moves all extremities symmetrically and with purpose. No truncal ataxia. Speech is fluid without evidence of dysarthria or aphasia, no focal deficits appreciated. MUSCULOSKELETAL: There is full range of motion of all extremities. There is no joint pain or joint swelling or joint erythema. There is no muscle pain or tenderness or swelling. EXTREMITIES: warm, well-perfused, no cyanosis, no clubbing, no edema, no acute deformities. Skin: warm, dry, no rashes or lesions, no jaundice, no petechiae orpurpura. No ecchymosis. PSYCHIATRIC: Normal affect, normal insight, normal concentration. Focused exam: [No guarding or rebound] Progress Results/Orders Results/Orders Medications Received in ER Medications (Trade) Dose Ordered Sig/Dafne Route PRN Reason Start Time Stop Time Status Last Admin Dose Admin (fentaNYL 0.05 MG/ML syringe) 50 mcg ONCE ONCE IV 06/10/25 14:10 06/10/25 14:11 DC 06/10/25 14:18 50 MCG (Compazine inj) 10 mg ONCE ONCE IV 06/10/25 16:30 06/10/25 16:34 DC 06/10/25 16:39 10 MG Vital Signs 06/10/25 06/10/25 06/10/25 06/10/25 10:48 12:09 13:44 14:18 Temp 99.0 Pulse 89 74 Resp 18 15 12 20 B/P (MAP) 118/56 106/51 (69) Pulse Ox 100 100 O2 Flow Rate 0 06/10/25 06/10/25 16:56 19:02 Temp 99.0 Pulse 74 65 Resp 18 9 B/P (MAP) 120/59 (79) 113/65 (81) Pulse Ox 98 100 O2 Flow Rate 0 Laboratory Tests Test 06/10/25 11:22 06/10/25 14:15 06/10/25 14:36 White Blood Count 7.3 Red Blood Count 3.92 L Hemoglobin 12.5 Hematocrit 36.7 Mean Corpuscular Volume 93.7 Mean Corpuscular Hemoglobin 31.8 H Mean Corpuscular Hemoglobin Concent 34.0 Red Cell Distribution Width 12.5 Platelet Count 178 Mean Platelet Volume 8.1 Neutrophils (%) (Auto) 58.5 Lymphocytes (%) (Auto) 29.7 Monocytes (%) (Auto) 10.5 Eosinophils (%) (Auto) 0.7 Basophils (%) (Auto) 0.6 Neutrophils # (Auto) 4.3 Lymphocytes # (Auto) 2.2 Monocytes # (Auto) 0.8 Eosinophils # (Auto) 0.0 Basophils # (Auto) 0.0 CBC Comment Sodium Level 138 Potassium Level 4.5 Chloride Level 108 H Carbon Dioxide Level 25.3 Anion Gap 5 L Blood Urea Nitrogen 14 Creatinine 0.75 Estimated GFR/1.73 m2 81 BUN/Creatinine Ratio 18.7 Glucose Level 82 Calcium Level 8.1 L Total Bilirubin 0.4 Aspartate Amino Transf (AST/SGOT) 19 Alanine Aminotransferase (ALT/SGPT) 21 Alkaline Phosphatase 61 Total Protein 6.7 Albumin 3.5 Globulin 3.2 Albumin/Globulin Ratio 1.1 Lipase 31 Chemistry Comments Troponin I High Sensitivity 4 Urine Specimen Description Cln catch midstream Urine Color Yellow Urine Clarity Clear Urine pH 8.0 Urine Specific [place] 1.010 Urine Protein Negative Urine Glucose (UA) Negative Urine Ketones 15 H Urine Occult Blood Negative Urine Nitrite Negative Urine Bilirubin Negative Urine Urobilinogen 0.2 Urine Leukocyte Esterase Negative Urine Culture Indicated Not ind Volume Urine Centrifuged 10 ml Urine HCG, Qualitative Negative Urine Comment Medical Decision Making Additional information obtaine: old records Findings Possible right renal calculi Associated with pyelonephritis Assessment: Currently no signs of sepsis, does not meet SIRS criteria Patient presented with repeated episodes of fever 101 F, nausea vomiting Right CVA tenderness radiating to the right groin No past medical history of renal calculi No hematuria Complaints of burning micturition with repeated urge to urinating Plan Ordered CT abdomen/pelvis with contrast Pain management with morphine 1 mg IV for moderate pain Fluid resuscitation with normal saline at 100 cc/hour For repeated nausea and vomitings: Ordered Zofran PRN acetaminophen for fever History of paroxysmal AFib Wilfrid Vasc score 1 Patient would not qualify for anticoagulation She currently appears to be in sinus rhythm But she complains of intermittent episodes of palpitations Counseled her in detail regarding the need for cardiology referral from her primary care provider Hypothyroidism: Continue home medication levothyroxine, TSH ordered COPD and asthma: Currently stable, continue home inhalers trilogy Advised to switch her albuterol to levalbuterol in view of intermittent palpitation Signed out to Dr. Vann Assume care of patient to follow up MRCP. MRCP is negative. Patient's pain that has controlled. Unknown cause for patient's pain however CT scan as well as labs are otherwise reassuring aside from the dilated common bile duct. I believe this is from her prior surgery. ER precautions discussed Differential Diagnosis Right renal calculi Pyelonephritis Appendicitis Gastroenteritis Departure Disposition: HOME / SELF CARE / HOMELESS Impression: Primary Impression: Right upper quadrant abdominal pain Additional Impressions: Status post cholecystectomy Dilated bile duct Condition: Stable Discharge Instructions: Abdominal Pain (Nonspecific) Referrals: NO PRIMARY CARE PROVIDER (PCP) Prescriptions Ondansetron 8mg ODT (Ondansetron Odt) 8 Mg Tab.rapdis 1 TAB PO Q6H for nausea/vomiting for 3 Days, #12 TAB 0 Refills Prov: KEAGAN REEDER MD 06/10/25 Hydrocodone Bit/Acetaminophen 5/325 MG (Westby 5/325 MG) 5 Mg/325 Mg Tablet 1 TAB PO Q4-6 hours PRN for pain, #7 TAB Prov: KEAGAN REEDER MD 06/10/25 Education Educated: Patient Educated regarding: diagnosis, treatment, need for follow up Additional Comment Seen with PA/[employer] DEVELOPER This is an attending supervisory note for the resident of record. I have personally participated in care of this patient, has been present during critical and/or ruvalcaba portions of the patient's service, participated in the evaluation, and provided major portion of medical decision-making, independently interpreted imaging and laboratory studies and participated in disposition of this patient. Facility Status: ED Holds, [facility] process The plan was discussed with the patient, who demonstrates clear understanding of the plan and is in agreement with the plan unless otherwise noted in the chart. All questions have been answered, all concerns were addressed unless otherwise documented. I was available throughout their ED stay for frequent reassessment and questions. Differential Diagnoses (considered and possible or likely): [Differential diagnosis considered includes acute appendicitis, acute cholecystitis, pancreatitis, gastritis, PUD, diverticulitis, mesenteric ischemia, abdominal aortic aneurysm, bowel obstruction, enteritis, colitis, fecal impaction, volvulus, IBS, inflammatory bowel disease, specific food intolerance, peritonitis, perforated viscous, malignancy, UTI, abscess, and abdominal pain NOS. Pelvic source of pain was also considered including endometritis, dysmenorrhea, ovarian cyst, ovarian torsion, PID, TOA, cervicitis, vaginitis, or uterine fibroid. History, physical exam, and workup exclude many of the more serious causes listed above. ] ??Differential Diagnoses (considered and unlikely, not requiring evaluation currently): [See above] MDM Data Please see HPI for the following: Independent Historians and external Records Review. Historian: [Patient] Independent Historians: ?[Record review] Medication Management: [Reviewed medication list] Social History and determinants: [Reviewed] Please see the body of the note for the following: Any independent interpretations of ECG, imaging studies. All vitals signs/haemodynamics, ordered tests were independently reviewed and interpreted by myself. Nursing triage complaint and vitals reviewed, additional nursing notes were reviewed as available and I agree unless otherwise noted or documented in contradiction in the chart Vital Signs: Independently reviewed Labs: Independently interpreted Imaging: Independently interpreted Old Medical Records: Independently reviewed, see HPI for relevant summary and information Pulse Oximetry: [95%] interpreted as [normal on room air] by me [Marketing Specialist: [Regular Rate, Regular rhythm, no ectopy, NSR] reviewed and interpreted by me] Additionally notably showing: [Hemodynamics reviewed. The patient isn't febrile, not tachycardic, no evidence of hypotension respiratory distress. CBC shows no significant leukocytosis, no anemia, normal platelets, no neutrophilic predominance. Chemistry is unremarkable. Lipase is normal. Troponin is negative. UA as unremarkable. She is not . Imaging was obtained showing no acute findings, however there is markedly dilated extrahepatic bile duct measuring 1.9 cm. It recommends MRCP if bilirubin is elevated.] Tests considered but not ordered include: [Initially did not consider MRCP, however considerably severe pain this patient is experiencing, I feel that for completeness MRCP is warranted.] Social Determinants of Health Impact: Patient was evaluated in [facility], [facility] [place] to healthcare due to below par ratio of patient to medical providers. [] Comorbid Conditions Impacting Present Evaluation and Care/Treatment: [Status post cholecystectomy] Management Discussions with other Healthcare Providers: [] Treatment and Disposition Medication Management (Given or considered): [Pain management]. See EMR for details Consideration for Hospitalization/Escalation/Deescalation of Care: Admission for observation has been considered, [however the patient is able to tolerate p.o., their symptoms are controlled, they are able to rely on oral medications, and their chief complaint/diagnosis can be managed on outpatient basis.] ?ED Course:?[The patient reported that morphine actually made her pain worse. Fentanyl helped.] ?Shared decision making:?[] Code status:?FULL Please see the full Electronic Medical Record for full details of nursing documentation, medications list, other records of complete past medical history and conditions, vital signs, laboratory studies, and any radiologic study interpretations by radiologists. Portions of this note were completed using Octmami dictation software and as a result there may exist minor errors in spelling. I have reviewed elements of past family and social history and agree as included in note. Signature Scribe Signature: No scribe Attestation: The note accurately reflects work and decisions made by me.Keagan Reeder MD 06/10/25 19:55 Shahram Stephenson MD Internal Medicine Resident, PGY-2 Date: Jun 10, 2025 Time: 15:11 This note accurately reflects clinical decisions, work performed by myself, DO DANIELA Gusman GAURAV, RES Jun 10, 2025 11:55 LUIS MIGUEL VANN DO Jun 10, 2025 15:09 KEAGAN REEDER MD Jun 10, 2025 19:47
[2025-06-10] MEDS: normal saline 1000ml 1,000 ML IV ONE (12:09)
[2025-06-10] MEDS: morphine 4 MG/ML inj SYRINge IV ONE (12:09)
[2025-06-10] MEDS: ondansetron/PF 4mg/2ml inj IV ONE (12:09)
[2025-06-10] MEDS ORDERED: iohexol 300mg/ml 100ml inj. ONE (12:34)
--- NOTE | 2025-06-10 13:35 | ELECTROCARDIOGRAPH REPORT ---
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 Russ Rae Measurements Intervals [place] Rate: 95 P: 73 [place]: 135 QRS: 9 QRSD: 91 T: 44 QT: 380 QTc: 478 Interpretive Statements Sinus rhythm Electronically Signed On 06-10-2025 20:39:[address] Russ Rae Please click the below link to view image of tracing.
[2025-06-10] MEDS: fentaNYL/PF 50MCG/1 ML 2ML syringe IV ONE (14:18)
--- NOTE | 2025-06-10 14:19 | RADIOLOGY REPORT ---
Exam: CT CT ABDOMEN PELVIS W/ IV CONTRAST History: R sided pain Comparison Study: CT CTA CHEST PE on DOS: 02/27/24, US ULTRASOUND PELVIS W/ORWO DPLX on DOS: 10/12/23, CTA CHEST on DOS: 01/24/23, CT CHEST on DOS: 11/02/22 Technique: Multidetector spiral CT of the abdomen and pelvis was performed from lung bases to pubic symphysis. Initial imaging was done without IV contrast, followed by post contrast images of the abdomen and pelvis. Intravenous contrast was administered during this examination. Portal venous imaging was obtained. Axial, coronal and sagittal multiplanar reformats were performed by the technologist on a separate workstation. Radiation Dose : CT Dose: CTDI volume is 8 mGy. Dose-length product is 391 mGy*cm Findings: Lung Bases: No acute or significant lung base finding. Normal heart size. No pleural or pericardial effusion. Liver: The liver is normal in size. No focal lesions. Normal hepatic vascular enhancement. Gallbladder and Biliary Tree: Gallbladder is surgically absent. Slightly dilated extrahepatic bile duct measuring up to 1.9 cm. Spleen: Unremarkable Pancreas: The pancreas is normal in appearance without focal lesions or abnormal enhancement. Adrenal Glands: Unremarkable Kidneys: Kidneys demonstrate normal symmetric enhancement without focal lesions, calculi or hydronephrosis. Bladder: Unremarkable Bowel: The stomach is grossly normal in appearance. Small bowel and colon are normal in caliber and distribution. The appendix is not visualized; however, no secondary findings of acute appendicitis identified. Ascites: Absent Lymphadenopathy: No mesenteric, retroperitoneal or periportal lymphadenopathy. Abdominal Wall and Mesentery: Unremarkable. Vasculature: The visualized abdominal aorta is normal in size and caliber. Abdominal and pelvic vessels demonstrate normal enhancement. Pelvic Organs: Unremarkable Musculoskeletal: No aggressive focal bony lesions, acute fractures or dislocation. IMPRESSION: 1. No acute abdominal or pelvic finding. 2. Status post cholecystectomy with dilated extrahepatic bile duct measuring up to 1.9 cm. If bilirubin levels are elevated, consider MRCP. Radiation optimization: All CT scans at this facility use at least one of these dose optimization techniques: automated exposure control mA and/or kV adjustment per patient size (includes targeted exams where dose is matched to clinical indication) or iterative reconstruction.
[2025-06-10 14:50] LABS: LEUKOCYTE ESTERASE ,URINE NEGATIVE (Neg); NITRITES, URINE NEGATIVE (Neg); OCCULT BLOOD,URINE NEGATIVE (Neg)
[2025-06-10 14:52] LABS: URINE HCG NEGATIVE (NEG)
[2025-06-10 14:55] LABS: UA COLLECTION TYPE CLN CATCH MIDSTREAM
--- NOTE | 2025-06-10 19:38 | RADIOLOGY REPORT ---
MRI/MRCP abdomen HISTORY: Status post cholecystectomy, right upper quadrant abdominal pain COMPARISON: CT CT ABDOMEN PELVIS W/ IV CONTRAST on DOS: 06/10/25, CT CTA CHEST PE on DOS: 02/27/24, CTA CHEST on DOS: 01/24/23, CT CHEST on DOS: 11/02/22 TECHNIQUE: Multiplanar multisequence MRI images were obtained of the abdomen without intravenous contrast Additional MIPS were obtained of the biliary system. FINDINGS: The lower chest is unremarkable. Cholecystectomy. There is no fluid collection in the gallbladder fossa. There is moderate intrahepatic and extrahepatic biliary ductal dilatation. The common bile duct measures 9.4 mm. There is no choledocholithiasis or obstructing biliary lesion. The pancreas, spleen, adrenal glands, and kidneys are unremarkable. The visualized bowel is unremarkable. Abdominal aortic dimensions are normal. No ascites. No abdominal lymphadenopathy. The bone marrow signal is unremarkable. IMPRESSION: Moderate intrahepatic and extrahepatic biliary ductal dilatation without choledocholithiasis or obstructing biliary lesion. Status post cholecystectomy. No fluid collections.
[2025-06-10] MEDS ORDERED: HYDR-3965 PO (19:55)
[2025-06-10] MEDS ORDERED: ONDA-245 PO (19:55)
[2025-06-10 20:00] VITALS: BP 112/64; PULSE 83; RESP 14; TEMP 99; O2SAT 100
== END 2025-06-10 20:07 | disposition home or self-care (01) ==
LOC: ER 10:28
DX: K83.8 Other specified diseases of biliary tract (principal); R10.11 Right upper quadrant pain; J44.9 Chronic obstructive pulmonary disease, unspecified; E03.9 Hypothyroidism, unspecified; I25.10 Atherosclerotic heart disease of native coronary artery without angina pectoris; I25.2 Old myocardial infarction; Z90.49 Acquired absence of other specified parts of digestive tract; Z90.710 Acquired absence of both cervix and uterus; Z91.010 Allergy to peanuts; Z91.018 Allergy to other foods; Z88.5 Allergy status to narcotic agent; Z88.0 Allergy status to penicillin; Z79.899 Other long term (current) drug therapy
CPT/HCPCS: 36415; 74177; 74181; 80053; 81003; 81025; 83690; 84484; 85025; 93005; 96361; 96374; 96375; 99285; J0780; J2270; J2405; J3010; J7030; Q9967